=== PATIENT | male | born 1980 | race Caucasian/White ===

== ENCOUNTER 2024-02-17 10:49 | Emergency (ER) | payer SELFPAY ==
[2024-02-17 10:55] VITALS: BP 100/71; PULSE 80; TEMP 37.1; O2SAT 98; BMI 26.0
--- NOTE | 2024-02-17 11:13 | ED_ITS ---
HPI HPI - Back Pain/Injury General Chief Complaint: Back Pain/Injury Stated Complaint: BACK INJURY Time Seen by Provider: 02/17/24 11:13 Source: patient Mode of arrival: walk-in Limitations: no limitations History of Present Illness HPI Narrative: This patient is here complaining of low back pain. Actually his pain starts in the lower thoracic area and goes down to his lumbar area. He states that 3 days ago he was carrying some material at his home overhead and he was both twisting bending and stooping at the same time. He pulling sensation. He has had tightening muscle spasm and discomfort ever since that time. Prior to that time he was told that he has mild arthritis in the spine but has never had an MRI or followed up with orthopedist the doctor for further evaluation. He has no tingling numbness weakness or radiculopathy type symptoms. There is no pain radiating to his groin or genital area and none rating down to his buttock. He has no bowel or bladder dysfunction. He has not been running a fever. He did not have any other trauma or injury. He is only taken a limited dose of anti- inflammatories. He is alternating some ice and heat. He is not on any muscle relaxants. He does not primary have a primary care doctor at this time. Related Data Previous Rx's ?Medication ?Instructions ?Recorded ketorolac 10 mg tablet 10 mg PO TID PRN pain #10 tabs 02/21/24 methocarbamol 750 mg tablet 750 mg PO TID PRN pain #12 tabs 02/21/24 Allergies Allergy/AdvReac Type Severity Reaction Status Date / Time Penicillins Allergy Unknown Unknown Verified 02/21/24 13:49 Opioid HPI Opioid Management Most Recent Opioid Data: No Data to Display [facility] Medical History (Updated 02/21/24 @ 14:14 by DOLLY Hayes) Arthritis of spine ?M47.819 - Spondylosis without myelopathy or radiculopathy, site unspecified (ICD-10) Concussion ?S06.0XAA - Concussion with loss of consciousness status unknown, initial encounter (ICD-10) Asthma ?J45.909 - Unspecified asthma, uncomplicated (ICD-10) Exam Narrative Exam Narrative: Awake alert moves cautiously but is ambulatory. In a sitting position he was examined. There is no gross kyphoscoliosis of the spine. There is no obvious deformity injury or bruising to the area. There is no evidence of shingles or other skin lesions. Deep tendon reflexes at patella are 3/4 and symmetrical. At Achilles are 2/4 and symmetrical and extensor houses longus function is excellent bilaterally. He was straight leg raising test and hip flexion he has discomfort but no radiculopathy type symptoms. There is no muscular atrophy. Constitutional Vital Signs, click to edit/add: Last Vital Signs Temp 98.7 F 02/17/24 10:55 Pulse 80 02/17/24 10:55 Resp 18 02/17/24 10:55 BP 100/71 02/17/24 10:55 Pulse Ox 98 02/17/24 10:55 O2 Del Method Room Air 02/17/24 10:55 Course Vital Signs Vital signs: Vital Signs Temperature 98.7 F 02/17/24 10:55 Pulse Rate 80 02/17/24 10:55 Respiratory Rate 18 02/17/24 10:55 Blood Pressure 100/71 02/17/24 10:55 Pulse Oximetry 98 02/17/24 10:55 Oxygen Delivery Method Room Air 02/17/24 10:55 Temperature 98.7 F 02/17/24 10:55 Pulse Rate 80 02/17/24 10:55 Respiratory Rate 18 02/17/24 10:55 Blood Pressure 100/71 02/17/24 10:55 Pulse Oximetry 98 02/17/24 10:55 Oxygen Delivery Method Room Air 02/17/24 10:55 MDM - Back Pain/Injury MDM Narrative Medical decision making narrative: At this time patient has classic thoracic thoracal lumbar strain. There is no indication or neurological symptomatology or dysfunction. I do not believe imaging will be necessary at this time. We will give him a work note for 3 days he is to alternate ice and heat 30 minutes only. Robaxin and Anaprox were advised. Will give him referral list with primary care doctors Discharge Plan Discharge Stand Alone Forms: Work/School Release, Portal Instructions Chief Complaint: Back Pain/Injury Clinical Impression: Strain of lumbar region, Acute lumbar myofascial strain Patient Disposition: Home, Self-Care Time of Disposition Decision: 11:16 Mode of Transportation: Private Vehicle Prescriptions / Home Meds: No Action ketorolac 10 mg tablet 10 mg PO TID PRN (Reason: pain) Qty: 10 0RF methocarbamol 750 mg tablet 750 mg PO TID PRN (Reason: pain) Qty: 12 0RF Print Language: Cypriot Instructions: Low Back Strain (ED), Lower Back Exercises (ED) Additional Instructions: Robaxin/Anaprox last alternate ice with heat. Off work for 3 days Discharge Date/Time: 02/17/24 11:31
== END 2024-02-17 11:31 | disposition home or self-care (01) ==
LOC: ER 11:19
PROVIDERS: Emergency Provider Emergency Medicine Emergency Medical Services
DX: S39.012A Strain of muscle, fascia and tendon of lower back, initial encounter (principal); X50.1XXA Overexertion from prolonged static or awkward postures, initial encounter
CPT/HCPCS: 99283

== ENCOUNTER 2024-02-21 13:40 | Emergency (ER) | payer SELFPAY ==
[2024-02-21 13:44] VITALS: BP 114/72; PULSE 86; TEMP 37.2; O2SAT 97; BMI 28.1
--- NOTE | 2024-02-21 13:52 | XR_ITS ---
The [address] [address] Patient Name: MADAI PIERSON MRN: [id number] date: 1980 Sex: M Assigned Patient Location: ER Current Patient Location: ED.MAIN Accession/Order Number: [id number] Exam Date: 02/21/2024 14:00 Report Date: 02/21/2024 14:17 At the request of: HUSSAIN HAWKINS Procedure: XR lumbar spine 2-3V EXAM: XR lumbar spine 2-3V HISTORY: Low back pain COMPARISON: None. TECHNIQUE: AP, lateral lumbar spine. FINDINGS: 5 lumbar vertebra. Normal alignment. Normal mineralization without fracture or focal bone lesion. Normal disc spaces. No evidence of pars defect. Visualized sacrum and SI joints unremarkable. XR/XR lumbar spine 2-3V IMPRESSION: Negative lumbar spine without fracture or focal bone lesion. Electronically authenticated by: EDER TORRES Date: 02/21/2024 14:17
--- NOTE | 2024-02-21 13:52 | ED_ITS ---
<Statement entered by Kait Bales MD - 02/21/24 17:04> This documentation has been reviewed and approved. HPI HPI - Back Pain/Injury General Chief Complaint: Back Pain/Injury Stated Complaint: BACK PAIN Time Seen by Provider: 02/21/24 13:49 Source: patient Mode of arrival: walk-in Limitations: physical limitation History of Present Illness HPI Narrative: Patient is a 43-year-old male who presents to the emergency department for an increase in pain to the low back and paraspinal area. He was seen in this emergency department several days ago, he was treated for lumbosacral strain. No imaging was performed and he was discharged home with Anaprox and Robaxin. He states the medications were working well for him until last night when he slipped in his bedroom and twisted his back again. He states he did fall to the ground. No head injury or other injuries. He is ambulatory and drove himself to the ER. He states the primary reason he came to the emergency department is because he is not able to go back to work. No peripheral paresthesias, no urinary symptoms. Related Data Previous Rx's ?Medication ?Instructions ?Recorded ketorolac 10 mg tablet 10 mg PO TID PRN pain #10 tabs 02/21/24 methocarbamol 750 mg tablet 750 mg PO TID PRN pain #12 tabs 02/21/24 Allergies Allergy/AdvReac Type Severity Reaction Status Date / Time Penicillins Allergy Unknown Unknown Verified 02/21/24 13:49 Opioid HPI Opioid Management Most Recent Opioid Data: No Data to Display Review of Systems ROS Constitutional Denies: fever or chills Ears, nose, mouth, and throat Denies: throat pain or nasal congestion Cardiovascular Denies: chest pain Respiratory Denies: shortness of breath or cough Gastrointestinal Denies: nausea or vomiting Musculoskeletal Reports: back pain; Denies: neck pain or extremity pain Integumentary/Breast Denies: rash Neurological Denies: headache, numbness in extremities or weakness in extremities Hematologic/Lymphatic Denies: easy bruising or easy bleeding [facility] Medical History (Updated 02/21/24 @ 14:14 by DOLLY Hayes) Arthritis of spine ?M47.819 - Spondylosis without myelopathy or radiculopathy, site unspecified (ICD-10) Concussion ?S06.0XAA - Concussion with loss of consciousness status unknown, initial encounter (ICD-10) Asthma ?J45.909 - Unspecified asthma, uncomplicated (ICD-10) Exam Narrative Exam Narrative: Gen.: Awake, alert, in no distress Head: Normocephalic, atraumatic ENT: Moist mucous membranes Respiratory: No respiratory distress Extremities: Moves extremities equally, normal dorsiflexion and plantarflexion of the lower extremities with no decrease in sensation to the medial thighs Back: No bony point tenderness of the lumbar spine with no obvious deformity or step-off. No CVA tenderness. Psych: Normal mood and affect Neuro: No focal neuro deficit Skin: Warm, dry, intact Constitutional Vital Signs, click to edit/add: Last Vital Signs Temp 99 F 02/21/24 13:44 Pulse 86 02/21/24 13:44 Resp 18 02/21/24 13:44 BP 114/72 02/21/24 13:44 Pulse Ox 97 02/21/24 13:44 O2 Del Method Room Air 02/21/24 13:44 Course Vital Signs Vital signs: Vital Signs Temperature 99 F 02/21/24 13:44 Pulse Rate 86 02/21/24 13:44 Respiratory Rate 18 02/21/24 13:44 Blood Pressure 114/72 02/21/24 13:44 Pulse Oximetry 97 02/21/24 13:44 Oxygen Delivery Method Room Air 02/21/24 13:44 Temperature 99 F 02/21/24 13:44 Pulse Rate 86 02/21/24 13:44 Respiratory Rate 18 02/21/24 13:44 Blood Pressure 114/72 02/21/24 13:44 Pulse Oximetry 97 02/21/24 13:44 Oxygen Delivery Method Room Air 02/21/24 13:44 MDM - Back Pain/Injury MDM Narrative Medical decision making narrative: Patient with no neurologic deficit, no bony point tenderness on exam, and x-rays with no evidence of acute process. Patient request multiple times for work note to be written for him with limited duty and time off from his last visit. He was given a short course of analgesics and muscle relaxants as needed although he states he has leftover medication from previous. He was given a primary care referral and a work note. Return to the ER if symptoms change or worsen. Rest, ice, gentle stretching. SUPERVISED APC VISIT, PHYSICIAN ATTESTATION: Based on the medical record the care appears appropriate. ? Medical Records Attestation: I reviewed the patient's medical records. Imaging Data XR lumbar: Attestation: I have reviewed the pertinent imaging results. Radiologist's impression: ITS Impressions Lumbar Spine X-Ray 02/21/24 13:52 IMPRESSION: Negative lumbar spine without fracture or focal bone lesion. Electronically authenticated by: EDER TORRES Date: 02/21/2024 14:17 Discharge Plan Discharge Stand Alone Forms: Portal Instructions Chief Complaint: Back Pain/Injury Clinical Impression: Strain of lumbar region Patient Disposition: Home, Self-Care Time of Disposition Decision: 14:14 Condition: Good Prescriptions / Home Meds: New ketorolac 10 mg tablet 10 mg PO TID PRN (Reason: pain) Qty: 10 0RF methocarbamol 750 mg tablet 750 mg PO TID PRN (Reason: pain) Qty: 12 0RF Print Language: Fijian Instructions: Low Back Strain (ED) Referrals: Physician,Non-Staff, MD [Primary Care Provider] - 1 week
--- OUTSIDE RECORDS SUMMARY | 2024-02-21 14:19 | XMS_ITS | CCD ---
Author Organization [facility] Inform ion Partnership [facility] Care Team Providers Care Transverse Abdominal Muscle Surgeon Name Role Phone Sharath Lugo Primary Care Physician Caden MITCHELL Primary Care Physician Sharath Lugo Primary Care Physician [phone] JOSÉ MIGUEL LEES Attending Unavailable Misty LEWIS Attending Unavailable Nii Degroot Attending Unavailable Martín Hawthorne Attending Unavailable Allergies Allergy Classification Reported Allergen(s) Allergy Type Date of Onset Reaction(s) Facility (5 sources) Penicillins; Translations: [penicillins] Drug allergy Unknown (qualifier value) [facility] Medications Current Medications Medication Drug Class(es) Dates Sig (Normalized) Sig (Original) 200 actuat albuterol 0.09 mg/actuat dry powder inhaler (5 sources) beta2-Adrenergic Agonist Start: 01-09-2022 End: 02-10-2022 take 1 dose by inhalation every four hours albuterol 90 mcg/inh inhalation powder 2 puff(s), Inhalation, q4hr for wheezing or SOB, 1 EA, Refill(s) 0, [facility], 175, cm, 01/09/22 18:04:00 EDT, Height/Length Dosing, 90, kg, 01/09/22 18:04:00 EDT, Weight Dosing Start Date: 01/09/22 Stop Date: 02/10/22 Status: Ordered Start: 10-10-2021 End: 10-15-2021 take 2.5 mg by inhalation every six hours as needed for wheezing albuterol 0.083% Inh Kirsten 3 mL UD 2.5 mg = 3 mL, Inhalation, q6hr, PRN for wheezing, X 5 day(s), # 30 EA, Refills(s) 0, Pharmacy: [facility], 175, cm, 10/10/21 13:17:00 EDT, Height/Length Dosing, 93, kg, 10/10/21 13:17:00 EDT, Weight Dosing Start Date: 10/10/21 Stop Date: 10/15/21 Status: Ordered Start: 08-19-2020 take 1 dose by inhal ation four times daily Proventil HFA 90 mcg/inh Aerosol 2 puff(s), Inhalation, QID, 1 EA, Refill(s) 0 Start Date: 08/19/20 Status: Ordered clindamycin 300 mg oral capsule (1 source) Lincosamide Antibacterial Start: 05-01-2023 End: 05-08-2023 take 1 capsule by mouth every eight hours clindamycin 300 mg oral cap 300 mg = 1 cap(s), Oral, q8hr, X 7 day(s), # 21 cap(s), Refills(s) 0, Pharmacy: [facility], 175.3, cm, 05/01/23 5:46:00 EST, Height/Length Dosing, 93.2, kg, 05/01/23 5:46:00 EST, Weight Dosing Start Date: 05/01/23 Stop Date: 05/08/23 Status: Ordered doxycycline hyclate 100 mg oral capsule (1 source) Tetracycline-class Drug Start: 10-10-2021 End: 10-20-2021 take 1 capsule by mouth every twelve hours doxycycline hyclate 100 mg Cap 100 mg = 1 cap(s), Oral, q12hr, X 10 day(s), # 20 cap(s), Refills(s) 0, Pharmacy: [facility], 175, cm, 10/10/21 13:17:00 EDT, Height/Length Dosing, 93, kg, 10/10/21 13:17:00 EDT, Weight Dosing Start Date: 10/10/21 Stop Date: 10/20/21 Status: Ordered predniSONE 20 mg oral tablet (1 source) Start: 10-10-2021 End: 10-15-2021 take 3 tablets by mouth once daily predniSONE 20 mg Tab 60 mg = 3 tab(s), Oral, Daily, X 5 day(s), # 15 tab(s), Refills(s) 0, Pharmacy: [facility], 175, cm, 10/10/21 13:17:00 EDT, Height/Length Dosing, 93, kg, 10/10/21 13:17:00 EDT, Weight Dosing Start Date: 10/10/21 Stop Date: 10/15/21 Status: Ordered Completed/Discontinued Medications Medication Drug Class(es) Dates Sig (Normalized) Sig (Original) naproxen 500 mg oral tablet (1 source) Nonsteroidal Anti-inflammatory Drug Start: 10-23-2023 take 1 tablet by mouth twice daily naproxen 500 mg Tab 500 mg = 1 tab(s), Oral, BID, Take one tab by mouth two times a day, # 14 tab(s), Refills(s) 0, Pharmacy: [id number], 175.3, cm, 10/23/23 15:12:00 EDT, Height/Length Dosing, 84.8, kg, 10/23/23 15:12:00 EDT, Weight Dosing Start Date: 10/23/23 Status: Ordered nebulizer (4 sources) Start: 10-10-2021 nebulizer nebulizer, See Instructions, 1 EA, 0, nebulizer, Supply Start Date: 10/10/21 Status: Ordered Proventil HFA 90 mcg/inh Aerosol (1 source) Start: 08-19-2020 take 1 dose by inhalation four times daily Proventil HFA 90 mcg/inh Aerosol 2 puff(s), Inhalation, QID, 1 EA, Refill(s) 0 Start Date: 08/19/20 Status: Ordered Problems Problem Classification Problem Date Documented Date Episodic/Chronic Asthma (4 sources) Asthma 09-08-2017 Chronic Chronic obstructive pulmonary disease and bronchiectasis (1 source) Pulmonary emphysema; Translations: [Emphysema, unspecified] Onset: 10-10-2021 Chronic Disorders of teeth and jaw (1 source) Periapical abscess; Translations: [Periapical abscess without sinus] Onset: 05-01-2023 Episodic Fever of unknown origin (1 source) Fever; Translations: [Fever, unspecified] Onset: 01-09-2022 Episodic Pneumonia (except that caused by tuberculosis or sexually transmitted disease) (1 source) Pneumonia; Translations: [Pneumonia, unspecified organism] Onset: 10-10-2021 Episodic Sprains and strains (1 source) Sprain of left wrist; Translations: [Unspecified sprain of left wrist, initial encounter] Onset: 10-23-2023 Episodic Substance-related disorders (4 sources) Smoker 12-31-2015 Chronic Comment on above: Added secondary to d ocumentation in Social History. Viral infection (1 source) Viral disease; Translations: [Viral infection, unspecified] Onset: 01-09-2022 Episodic Results Test Name Value Interpretation Reference Range Facility [facility] 10-29-2023 Consent [id number] #1.00TIFF Normal [facility] Workers' Comp Officeon 10-28 Workers' Comp Office [id number]#1.00TIFF Normal [facility] Workers' Comp Office [id number] 312#1.00TIFF Normal [facility] Workers' Comp Office Patient: NII PIERSON Age: 42 years Sex: Male : 1980 Associated Diagnoses: None Author: Misty LEWIS CNP Chief Complaint 10/29/2023 10:56 EDT ER f/u DOI 10/23/23 L hand/wrist. Pt states he heard and felt a pop in his L wrist, after he had numbness in his L thumb and index finger. Pt states he no longer is having numbness. 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 This occurs q5 min As he was lifting a roll of paper he heard a pop in his left wrist. He immediately applied an samir bandage but his wrist continued to hurt and he felt a numbness in his index finger and thumb. Pt then decided to go to the ER - xrays of forearm and wrist are negative. He was diagnosed with sprain of the left wrist. Put into a wrist splint, rx for naproxen 10/29/23 presents today for ER f/u States he has no consistent pain - states he used to be able to crack his wrist and has not been able to do this. He does have pain with certain movements. Denies any swelling. He wears splint off and on, he is taking 600 mg ibuprofen He has not been working as place of employment does not have light duty He is right hand dominate Review of Systems Constitutional: Negative. Musculoskeletal: left wrist sprain. Integumentary: Negative. Neurologic: Negative. Psychiatric: Negative. Health Status Allergies: Allergic Reactions (Selected) Severity Not Documented Penicillins- Unknown., Allergies (1) Active Severity Reaction penicillins Unknown Current medications: (Selected) Prescriptions Prescribed Proventil HFA 90 mcg/inh Aerosol: 2 puff(s), Inhalation, QID, 1 EA, Refill(s) 0 naproxen 500 mg Tab: 500 mg = 1 tab(s), Oral, BID, Take one tab by mouth two times a day, # 14 tab(s), Refills(s) 0, Pharmacy: [facility], 175.3, cm, 10/23/23 15:12:00 EDT, Height/Length Dosing, 84.8, kg, 10/23/23 15:12:00 EDT, Weight Dosing nebulizer: nebulizer, See Instructions, 1 EA, 0, nebulizer, Supply, Home Medications (3) Active naproxen 500 mg Tab 500 mg = 1 tab(s), Oral, BID nebulizer See Instructions Proventil HFA 90 mcg/inh Aerosol 2 puff(s), Inhalation, QID Problem list: Active Problems (1) Smoker Histories Past Medical History: Resolved Asthma ([id number]): Resolved. Procedure history: tubes in bilateral ears as a child. Physical Examination Vital Signs (last 24 hrs) Last Charted SBP 126 mmHg (OCTOBER 28 10:56) DBP 70 mmHg (OCTOBER 28 10:56) General: Alert and oriented, No acute distress. Musculoskeletal No deformity of left wrist. No edema is present. No tenderness to palpation. FROM of wrist and fingers. Good strength.. Integumentary: Warm, Dry, [place]. Neurologic: Alert, Oriented, Normal sensory, Normal motor function. Psychiatric: Cooperative, Appropriate mood & affect. Impression and Plan Diagnosis Unspecified sprain of left wrist, initial encounter ([id number] S63.502A, Working, Medical). Course: Improving. Orders Total time: 25 minutes This includes time spent with the patient during the visit as well as time spent before and after the visit reviewing the chart, documenting the encounter, making phone calls, reviewing studies. . Professional Services 1. Reviewed record 2. Status: improvement 3. Reviewed medication profile 4. Ibuprofen 600 mg q8hr 5. tylenol 1000 mg q8hr prn 6. Counseled patient on medication administration and possible side effects 7. Use ice / heat prn - may wear immobilizer prn 8 Work Restrictions: RTW full duty 9 F/U [facility] Consent for Treatmenton 09-25 Consent for Treatment [id number] BD#1.00TIFF [facility] Discharge Instructionson Discharge Instructions [id number]#1.00TIFF [facility] ED Clinical Summaryon 2023 ED Clinical Summary [place] [id number] ED Clinical Summary Person Information Name: NII PIERSON Geni/[facility] Age: 42 Years : 1980 Sex: Male Language: [place] PCP: Sharath Lugo DO Marital Status: Single Phone: [phone] Visit Id: Visit Reason: Wrist pain-swelling; LEFT WRIST HURT Speciality: Acuity: 4 Enc Type: Emergency Med Service: Emergency Arrival: 10/23/2023 15:04:55 Discharge: 10/23/2023 16:21:33 LOS: 000 01:17 Checkin: 10/23/2023 15:04:55 Checkout: 10/23/2023 16:21:33 Dispo Type: Home (Routine DC) EVENTS: Event Name Event Status Request Date/Time Start Date/Time Complete Date/Time Arrive Complete 10/23/2023 15:04:55 10/23/2023 15:04:55 10/23/2023 15:04:55 Document Home Meds Request 10/23/2023 15:04:55 Triage Complete 10/23/2023 15:04:55 10/23/2023 15:12:26 10/23/2023 15:12:26 No Visitors Request 10/23/2023 15:06:37 RN Exam Complete 10/23/2023 15:14:16 10/23/2023 15:14:16 10/23/2023 15:14:16 Bed Assign Complete 10/23/2023 15:17:52 10/23/2023 15:17:52 10/23/2023 15:17:52 Dr Exam Complete 10/23/2023 15:17:52 10/23/2023 15:20:07 10/23/2023 15:20:07 Registration Complete 10/23/2023 15:20:07 10/23/2023 15:46:14 10/23/2023 15:46:14 X-Ray Complete 10/23/2023 15:31:24 10/23/2023 15:40:27 10/23/2023 15:50:25 Reg Complete Request 10/23/2023 15:46:14 Reg Bed Request Complete 10/23/2023 15:46:14 10/23/2023 15:46:14 10/23/2023 15:46:14 Wet Read Complete 10/23/2023 15:50:25 10/23/2023 15:51:23 10/23/2023 15:51:23 Discharge Complete 10/23/2023 15:55:22 10/23/2023 16:21:43 10/23/2023 16:21:43 Transfer Complete 10/23/2023 16:21:43 10/23/2023 16:21:43 10/23/2023 16:21:43 ADDRESS: [address] [place] [address] [phone] PHYS DOC NOTES: MEDICAL INFORMATION: Prescriptions Given: New Medications [facility], [address] [place], [place] [id number], [phone] naproxen (naproxen 500 mg Tab) 1 Tablets By Mouth 2 times a day. Take one tab by mouth two times a day. Refills: 0. Medications to Continue with No Changes Other Medications albuterol (Proventil HFA 90 mcg/inh Aerosol) 2 Puffs Inhalation 4 times a day. Refills: 0. Misc Prescription (nebulizer) nebulizer. Refills: 0. PATIENT EDUCATION INFORMATION: Instructions: Follow up: With: Address: When: Occupational Health: [facility] [place] [phone] In 3 days 10/26/2023 DIAGNOSIS: Sprain of left wrist Normal [facility] ED Note-Physicianon 10-23-19 ED Note-Physician Basic Information Time Seen: Martín Hawthorne DO 10/23/2023 15:20 Chief Complaint patiet c/o left wrist pain after lifting a box at work this am [employer]- [employer] History of Present Illness 42 male presents emergency department with left wrist injury. Patient states earlier this morning around 830 he was at work he was lifting a heavy roll when he felt something snap in the ulnar aspect of his left wrist causing injury. Patient states he continue to try to work through this but continued to have increasing pain throughout the distal forearm and wrist with some numbness into his thumb and index finger as well. He has had prior injuries here before but denies any surgical intervention. No other aggravating or relieving factors no other associated symptoms no other prior treatments or complaints. Family: Reviewed and noncontributory Social: lives at home Review of systems negative unless otherwise specified in the HPI. Physical Exam Vitals & Measurements T: 36.7 ?C(Oral) HR: 88(Peripheral) RR: 18 BP: 111/77 SpO2: 98% HT: 175.26 cm WT: 84.8 kg BMI: 27.61 Vital Signs reviewed and noted. General: Alert, no acute distress, patient resting comfortably Skin: warm, intact, no pallor noted Head: Normocephalic, atraumatic Eye: Normal conjunctiva Cardiac: Normal peripheral perfusion Respiratory: No acute distress Musculoskeletal: Left upper extremity exam: No focal tenderness palpation to the left elbow or forearm. Patient does have some generalized tenderness to the distal third of the forearm and generally about the wrist as well. No tenderness in the anatomical snuffbox or the remainder of the hand. There is some pain with range of motion here as well. Neurological: alert and oriented, normal sensory and motor observed. Psychiatric: Cooperative Medical Decision Making X-rays are negative for acute fracture patient is educated on rice therapy discharged home on naproxen follow-up follow-up with occupational health and given a wrist plant as well. Assessment/Plan Sprain of left wrist (S63.502A: Unspecified sprain of left wrist, initial encounter) Orders: naproxen, 500 mg = 1 tab(s), Oral, BID, Take one tab by mouth two times a day, # 14 tab(s), Refills(s) 0, Pharmacy: [facility], 175.3, cm, 10/23/23 15:12:00 EDT, Height/Length Dosing, 84.8, kg, 10/23/23 15:12:00 EDT, Weight Dosing Splint Application Wrist XR Forearm 2 Views Left XR Wrist 3+ Views Left Disposition Plan Discharge Prescription List Prescriptions naproxen 500 mg Tab, 500 mg= 1 tab(s), Oral, BID Follow-up With When Contact Information Occupational Health: [facility] [place] [phone] In 3 days 10/26/2023 EDT Additional Instructions: Problem List/Past Medical History Ongoing Smoker Historical Asthma Procedure/Surgical History tubes in bilateral ears as a child. Medications Inpatient No active inpatient medications Home nebulizer, See Instructions Proventil HFA 90 mcg/inh Aerosol, 2 puff(s), Inhalation, QID Allergies penicillins (Unknown) Social History Alcohol - Low Risk, 03/18/2020 1-2 times per year, 02/09/2021 1-2 times per year, 10/19/2020 Current, 1-2 times per month, 03/18/2020 Current, Beer, 1-2 times per year, Previous treatment: None. Alcohol use interferes with work or home: No. Drinks more than intended: No. Others hurt by drinking: No. Ready to change: No., 09/08/2017 Current, Beer, 1-2 times per month, Alcohol use interferes with work or home: No. Drinks more than intended: No. Others hurt by drinking: No. Ready to change: No. Household alcohol concerns: No., 07/05/2017 Substance Abuse - Denies Substance Abuse, 12/25/2010 Current, 09/08/2017 Tobacco - High Risk, 05/26/2018 10 or more cigarettes (1/2 pack or more)/day in last 30 days Tobacco Use:., 02/09/2021 5-9 cigarettes (between 1/4 to 1/2 pack)/day in last 30 days Tobacco Use:., 10/19/2020 10 or more cigarettes (1/2 pack or more)/day in last 30 days Tobacco Use:., 03/18/2020 5-9 cigarettes (between 1/4 to 1/2 pack)/day in last 30 days Tobacco Use:. Cigarettes, 12 year(s). Previous treatment: None. Ready to change: Yes. Household tobacco concerns: Yes., 09/08/2017 Current, Cigarettes, Started age 11.0 Years. Previous treatment: Counseling. Ready to change: No., 12/25/2010 Lab Results No qualifying data available. Diagnostic Results XR Forearm 2 Views Left * Preliminary * 10/23/23 15:54:22 NEGATIVE: No fracture, subluxation or other acute abnormality Read By: Martín Hawthorne DO XR Wrist 3+ Views Left * Preliminary * 10/23/23 15:54:25 NEGATIVE: No fracture, subluxation or other acute abnormality Read By: Martín Hawthorne DO Normal [facility] Comment on above: Result Comment: Elec tronically Signed By: Martín Hawthorne DO\.br\Date and Time Signed: 10/23/23 15:56 EDT ED Patient Education Noteon 10-23-2023 ED Patient Education Note Normal [facility] ED Patient Summaryon 024 ED Patient Summary [place] [id number] Patient Discharge Instructions Person Information Name: NII PIERSON Age: 42 Years Arrival Date: 10/23/2023 15:04:55 Discharge Diagnosis: Sprain of left wrist Primary Care Physician: Sharath Lugo DO Provider Information Primary Provider: Martín Hawthorne DO Advanced Medical Information Specialist:None The exam and treatment you received in the Emergency Department were for an urgent problem and are not intended as complete care. It is important that you follow up with a doctor, nurse practitioner, or physician?s quality assistant for ongoing care. If your symptoms become worse or you do not improve as expected and you are unable to reach your usual health care provider, you should return to the Emergency Department. We are available 24 hours a day. NII PIERSON has been given the following list of patient education materials, prescriptions and follow-up instructions: Follow-up Instructions: With: Address: When: Occupational Health: [facility] [place] [phone] In 3 days 10/26/2023 In the event that this physician does not participate in your insurance network, please consult with your insurance company to find a nearby participating provider. Patient Education Materials: A MESSAGE TO ALL PATIENTS REGARDING OPIOIDS PRESCRIPTION OPIOIDS: WHAT YOU NEED TO KNOW Prescription opioids can be used to help relieve cogdyvoo-rb-tjpncq pain and are often prescribed following a surgery or injury, or for certain health conditions. These medications can be an important part of the treatment but also come with serious risks. It is important to work with your healthcare provider to make sure you are getting the safest, most effective care. WHAT ARE THE RISKS AND SIDE EFFECTS OF OPIOID USE? Prescription opioids carry serious risks of addiction and overdose, especially with prolonged use. An opioid overdose, often marked by slowed breathing, can cause sudden . The use of prescription opioids can have a number of side effects as well, even when taken as directed: ? Tolerance?meaning you might need to take more of the medication for the same pain relief ? Physical dependence?meaning you have symptoms of withdrawal when a medication is stopped ? Increased sensitivity to pain ? Constipation ? Nausea, vomiting, and dry mouth ? Sleepiness and dizziness ? Confusion ? Depression ? Low levels of testosterone that can result in lower sex drive, energy, and strength ? Itching and sweating RISKS ARE GREATER WITH: ? History of drug misuse, substance use disorder, or overdose ? Mental health conditions (such as depression or anxiety) ? Sleep apnea ? Older age (65 years and older) ? Avoid alcohol while taking prescription opioids. Also, unless specifically advised by your health care provider, medications to avoid include: ? Benzodiazepines (such as Xanax or Valium) ? Muscle relaxants (such as Soma or Flexeril) ? Hypnotics (such as Ambien or Lunesta) ? Other prescription opioids KNOW YOUR OPTIONS Talk to your health care provider about ways to manage your pain that don?t involve prescription opioids. Some of these options may actually work better and have fewer risks and side effects. Options may include: ? Pain relievers such as acetaminophen, ibuprofen, and naproxen ? Some medication that are also used for depression or seizures ? Physical therapy and exercise ? Cognitive behavioral therapy, a psychological, goal-directed approach, in which patients learn how to modify physical, behavioral, and emotional triggers of pain and stress. IF YOU ARE PRESCRIBED OPIOIDS FOR PAIN: ? Never take opioids in greater amounts or more often than prescribed. ? Follow up with your primary health care provider. o Work together to create a plan on how to manage your pain. o Talk about ways to help manage your pain that don?t involve prescription opioids. o Talk about any and all concerns and side effects. ? Help prevent misuse and abuse o Never sell or share prescription opioids. o Never use another person?s prescription opioids. ? Store prescription opioids in a secure place and out of reach of others (this may include visitors, children, friends, and family). ? Safely dispose of unused prescription opioids: Find your community drug take-back program or your pharmacy mail-back program, or flush them down the toilet, following guidance from the Food and Drug Administration (www.fda.gov/Drugs/ ResourcesForYou). ? Visit www.cdc.gov/drugove rdose to learn about the risks of opioids abuse and overdose. ? If you believe you may be struggling with addiction, tell your health child care centre manager and ask for guidance or call [facility]?S National Helpline at 8-794-151-IWEX. g Source: US Department of Health and Human Services/Center for Disease Control & Prevention Patrick Cruz (more content not included)... Normal [facility] Workers Comp Formson 024 Workers Comp Forms [id number] [facility] XR Forearm 2 Views Lefton XR Forearm 2 Views Left Exam Date/Time: 10/23/2023 15:50 EDT Reason for Exam: Pain, Traumatic Report PLEASE SEE XR Wrist 3+ Views Left REPORT DATED: 10/23/2023. Ordering Provider: Martín Hawthorne FINAL REPORT Dictated: 10/23/2023 4:46 pm Richard Lee MD Signed (Electronic Signature): 10/23/2023 4:46 pm Signed by: Richard eLe MD Transcribed by: JUAN MANUEL Technologist: SULY Technical Comments Radiation Dose: Ka,r in mGy = na DAP = na Normal [facility] XR Wrist 3+ Views Lefton XR Wrist 3+ Views Left Exam Date/Time: 10/23/2023 15:50 EDT Reason for Exam: Pain, Traumatic Report IMPRESSION: NO DISPLACED FRACTURE OR SIGNIFICANT POSTTRAUMATIC COMPLICATION IDENTIFIED. EXAM: XR Wrist 3+ Views Left, XR Forearm 2 Views DATE: 10/23/2023 3:40 PM CLINICAL HISTORY: Pain, Traumatic. COMPARISON: None available. TECHNIQUE: PA, lateral, oblique, and navicular radiographs of the left wrist and AP and lateral radiographs of the left forearm were obtained. FINDINGS: There is no fracture, dislocation, worrisome bone destruction, radiodense foreign bodies, or other posttraumatic complication identified. Ordering Provider: Martín Hawthorne FINAL REPORT Dictated: 10/23/2023 4:45 pm Richard Lee MD Signed (Electronic Signature): 10/23/2023 4:45 pm Signed by: Richard Lee MD Transcribed by: JUAN MANUEL Technologist: SULY Technical Comments Radiation Dose: Ka,r in mGy = na DAP = na Normal [facility] Consent for Treatmenton Consent for Treatment [id number] Normal [facility] Discharge Instructionson Discharge Instructions [id number] Normal [facility] ED Clinical Summaryon 2022 ED Clinical Summary [address] [address] ED Clinical Summary Person Information Name: NII PIERSON [place] Age: 42 Years : 1980 Sex: Male Language: [place] PCP: Sharath Lugo DO Marital Status: Single Visit Id: Visit Reason: Facial swelling; Dental pain; face pain swelling Speciality: Acuity: 4 Enc Type: Emergency Med Service: Emergency Arrival: 05/01/2023 05:37:34 Discharge: 05/01/2023 05:56:58 LOS: 000 00:19 Checkin: 05/01/2023 05:37:34 Checkout: 05/01/2023 05:56:58 Dispo Type: Home (Routine DC) EVENTS: Event Name Event Status Request Date/Time Start Date/Time Complete Date/Time Arrive Complete 05/01/2023 05:37:34 05/01/2023 05:37:34 05/01/2023 05:37:34 Document Home Meds Request 05/01/2023 05:37:34 Triage Complete 05/01/2023 05:37:34 05/01/2023 05:46:56 05/01/2023 05:46:56 Dr Exam Complete 05/01/2023 05:42:52 05/01/2023 05:42:52 05/01/2023 05:42:52 Registration Complete 05/01/2023 05:42:52 05/01/2023 05:45:41 05/01/2023 05:52:14 Bed Assign Complete 05/01/2023 05:45:41 05/01/2023 05:45:41 05/01/2023 05:45:41 RN Exam Complete 05/01/2023 05:45:41 05/01/2023 05:49:01 05/01/2023 05:49:01 Discharge Complete 05/01/2023 05:47:21 05/01/2023 05:57:02 05/01/2023 05:57:02 Meds Admin Complete 05/01/2023 05:47:52 05/01/2023 05:54:43 Reg Complete Request 05/01/2023 05:52:14 Reg Bed Request Complete 05/01/2023 05:52:14 05/01/2023 05:52:14 05/01/2023 05:52:14 Transfer Complete 05/01/2023 05:57:02 05/01/2023 05:57:02 05/01/2023 05:57:02 ADDRESS: [address] [facility] [id number] PHYS DOC NOTES: MEDICAL INFORMATION: Prescriptions Given: New Medications [id number], [address] [place] [id number], [phone] clindamycin (clindamycin 300 mg oral cap) 1 Capsules By Mouth every 8 hours for 7 Days. Refills: 0. Medications to Continue with No Changes Other Medications albuterol (Proventil HFA 90 mcg/inh Aerosol) 2 Puffs Inhalation 4 times a day. Refills: 0. Misc Prescription (nebulizer) nebulizer. Refills: 0. PATIENT EDUCATION INFORMATION: Instructions: Dental Pain; Dental Abscess Follow up: With: Address: When: [facility] [address] [place] [address] Business (1) In 3 days 05/04/2023 Comments: Call the office of your primary care doctor to arrange for follow-up within the above-stated timeframe. Follow-up with your primary care doctor about this ED visit. You should review your labs, imaging, and diagnoses from this ED visit with your primary care physician. There are occasionally non-emergent findings that require additional follow-up after your ED visit. If you were prescribed medications you should discuss possible side-effects and drug interactions with your pharmacist. Call 911 or go to the nearest Emergency Department if you develop any new or worsening symptoms. DIAGNOSIS: Dental abscess Normal [facility] ED Note-Physicianon 05-01-20 ED Note-Physician Basic Information Time Seen: Nii Degroot DO 05/01/2023 05:42 Chief Complaint pt started with dental pain yesterday and woke up with left side of face swollen and painful today History of Present Illness 42-year-old male to the emergency department with chief complaint of dental pain. Patient reports it began yesterday. Is in the left upper molar region. Patient reports he has very poor dentition and has multiple fractured teeth. He reports he is currently trying to get dental insurance and was hoping he can avoid any dental issues until he was able to. He denies any fever, sweats, chills. Noticed some increased swelling in his cheek today. Denies any change in voice, trouble opening his mouth. Review of Systems A 10 point review of systems is negative except as noted above. Medical and Surgical History: Reviewed and noted Social history: Lives at home Tobacco: Admits Physical Exam Vitals & Measurements T: 36.7 ?C(Oral) HR: 82(Peripheral) RR: 18 BP: 136/79 SpO2: 98% HT: 175.26 cm WT: 93.2 kg BMI: 30.34 VITALS: I have reviewed the triage vital signs. GENERAL: Well developed, well appearing adult in no acute distress. NEURO: Alert and oriented. Moves all extremities. Face is symmetric and expressive. EYES: PERRL. No scleral icterus or conjunctival injection. No discharge. HENT: Normocephalic, atraumatic. Hearing is grossly intact. Nares grossly patent and without discharge. Mucous membranes moist. No sublingual edema. No trismus. No drooling. No dysphonia. Grossly poor dentition, several near completely eroded teeth in the area of discomfort. No discrete abscess visualized. NECK: No JVD. Patient moves neck without restriction. EXTREMITIES: Symmetric muscle bulk. No joint swelling. No clubbing, cyanosis, or deformity. SKIN: Warm and dry. Normal turgor. No rash or lesions appreciated. PSYCH: Mood, affect, and interaction is appropriate to the setting. Medical Decision Making 42-year-old male with poor dentition with facial swelling and pain. No evidence of deep space infection. We will treat with clindamycin given his allergy to penicillin. He is given dental referral. Return precaution discussed. All questions were answered. He will treat with Tylenol or ibuprofen for discomfort at home. Patient was discharged home. Assessment/Plan Dental abscess (K04.7: Periapical abscess without sinus) Orders: clindamycin, 300 mg = 2 cap(s), Cap, Oral, Once, Stop date 05/01/23 5:47:00 EST, STAT, Start date 05/01/23 5:47:00 EST, 05/01/23 5:47:00 EST clindamycin, 300 mg = 1 cap(s), Oral, q8hr, X 7 day(s), # 21 cap(s), Refills(s) 0, Pharmacy: [id number], 175.3, cm, 05/01/23 5:46:00 EST, Height/Length Dosing, 93.2, kg, 05/01/23 5:46:00 EST, Weight Dosing Medications Administered Given clindamycin 150 mg Cap, 300 mg, Oral Disposition Plan Patient Discharge Condition Stable Discharge Disposition Home Discharge Prescription List Prescriptions clindamycin 300 mg oral cap, 300 mg= 1 cap(s), Oral, q8hr Follow-up With When Contact [facility] In 3 days 05/04/[address] [place] [address] [facility] (1) Additional Instructions: Call the office of your primary care doctor to arrange for follow-up within the above-stated timeframe. Follow-up with your primary care doctor about this ED visit. You should review your labs, imaging, and diagnoses from this ED visit with your primary care physician. There are occasionally non-emergent findings that require additional follow-up after your ED visit. If you were prescribed medications you should discuss possible side-effects and drug interactions with your pharmacist. Call 911 or go to the nearest Emergency Department if you develop any new or worsening symptoms. Patient Education Dental Pain Dental Abscess Problem List/Past Medical History Ongoing Smoker Historical Asthma Procedure/Surgical History tubes in bilateral ears as a child. Medications Inpatient No active inpatient medications Home clindamycin 300 mg oral cap, 300 mg= 1 cap(s), Oral, q8hr nebulizer, See Instructions Proventil HFA 90 mcg/inh Aerosol, 2 puff(s), Inhalation, QID Allergies penicillins (Unknown) Social History Alcohol - Low Risk, 03/18/2020 1-2 times per year, 02/09/2021 1-2 times per year, 10/19/2020 Current, 1-2 times per month, 03/18/2020 Current, Beer, 1-2 times per year, Previous treatment: None. Alcohol use interferes with work or home: No. Drinks more than intended: No. Others hurt by drinking: No. Ready to change: No., 09/08/2017 Current, Beer, 1-2 times per month, Alcohol use interferes with work or home: No. Drinks more than intended: No. Others hurt by drinking: No. Ready to change: No. Household alcohol concerns: No., 07/05/2017 Substance Abuse - Denies Substance Abuse, 12/25/2010 Current, 09/08/2017 Tobacco - High Risk, 05/26/2018 10 or more cigarettes (1/2 pack or more)/day in last 30 d (more content not included)... Normal [facility] Comment on above: Result Comment: Elec troryderally Signed By: Nii Degroot DO\.br\Date and Time Signed: 05/01/23 06:32 EST ED Patient Education Noteon 05-01-2023 ED Patient Education Note Dentistry Dental Pain Dental pain is often a sign that something is wrong with your teeth or gums. It is also something that can occur following dental treatment. If you have dental pain, it is important to contact your dental care provider, especially if the cause of the pain has not been determined. Dental pain may be of varying intensity and can be caused by many things, including: ? Tooth decay (cavities or caries). Cavities are caused by bacteria that produce acids that irritate the nerve of your tooth, making it sensitive to air and hot or cold temperatures. This eventually causes discomfort or pain. ? Abscess or infection. Once the bacteria reach the inner part of the tooth (pulp), a bacterial infection (dental abscess) can occur. Pus typically collects at the end of the root of a tooth. ? Injury. ? A crack in the tooth. ? Gum recession exposing the root, and possibly the nerves, of a tooth. ? Gum (periodontal)diseas e. ? Abnormal grinding or clenching. ? Poor or improper home care. ? An unknown reason (idiopathic). Your pain may be mild or severe. It may occur when you are: ? Chewing. ? Exposed to hot or cold temperatures. ? Eating or drinking sugary foods or beverages, such as soda or candy. Your pain may be constant, or it may come and go without cause. Follow these instructions at home: The following actions may help to lessen any discomfort that you are feeling before or after getting dental care. Medicines ? Take qerk-rht-foogkrr and prescription medicines only as told by your dental care provider. ? If you were prescribed an antibiotic medicine, take it as told by your dental care provider. Do not stop taking the antibiotic even if you start to feel better. Eating and drinking Avoid foods or drinks that cause you pain, such as: ? Very hot or very cold foods or drinks. ? Sweet or sugary foods or drinks. Managing pain and swelling ? Ice can sometimes be used to reduce pain and swelling, especially if the pain is following dental treatment. ? If directed, put ice on the painful area of your face. To do this: ? Put ice in a plastic bag. ? Place a towel between your skin and the bag. ? Leave the ice on for 20 minutes, 2?3 times a day. ? Remove the ice if your skin turns bright red. This is very important. If you cannot feel pain, heat, or cold, you have a greater risk of damage to the area. Brushing your teeth ? To keep your mouth and gums healthy, brush your teeth twice a day using a fluoride toothpaste. ? Use a toothpaste made for sensitive teeth as directed by your dental care provider, especially if the root is exposed. ? Always brush your teeth with a soft-bristled toothbrush. This will help prevent irritation to your gums. General instructions ? Floss at least once a day. ? Do not apply heat to the outside of the face. ? Gargle with a mixture of salt and water 3?4 times a day or as needed. To make salt water, completely dissolve ??1 tsp (3?6 g) of salt in 1 cup (237 mL) of warm water. ? Keep all follow-up visits. This is important. Contact a dental care provider if: ? You have any unexplained dental pain. ? Your pain is not controlled with medicines. ? Your symptoms get worse. ? You have new symptoms. Get help right away if: ? You are unable to open your mouth. ? You are having trouble breathing or swallowing. ? You have a fever. ? You notice that your face, neck, or jaw is swollen. These symptoms may represent a serious problem that is an emergency. Do not wait to see if the symptoms will go away. Get medical help right away. Call your local emergency services (911 in the [place] Do not drive yourself to the hospital. Summary ? Dental pain may be caused by many things, including tooth decay and infection. ? Your pain may be mild or severe. ? Take odyt-bgp-aritbor and prescription medicines only as told by your dental care provider. ? Watch your dental pain for any changes. Let your dental care provider know if your symptoms get worse. This information is not intended to replace advice given to you by your health care provider. Make sure you discuss any questions you have with your health care provider. Document Revised: 03/16/2021 Document Reviewed: 03/16/2021 [employer] Patient Education ? 2022 [employer]. Dental Abscess A dental abscess is an infection around a tooth that may involve pain, swelling, and a collection of pus, as well as other symptoms. Treatment is important to help with symptoms and to prevent the infection from spreading. The general types of dental abscesses are: ? Pulpal abscess. This abscess may form from the inner part of the tooth (pulp). ? Periodontal abscess. This abscess may form from the gum. What are the causes? This condition is caused by a bacterial infection in or around the tooth. It may result from: ? Severe tooth de (more content not included)... Normal [facility] ED Patient Summaryon 023 ED Patient Summary [address] [address] Patient Discharge Instructions Person Information Name: NII PIERSON Age: 42 Years Arrival Date: 05/01/2023 05:37:34 Discharge Diagnosis: Dental abscess Primary Care Physician: Sharath Lugo DO Provider Information Primary Provider: Nii Degroot DO. Advanced Medical Information Specialist:None The exam and treatment you received in the Emergency Department were for an urgent problem and are not intended as complete care. It is important that you follow up with a doctor, nurse practitioner, or physician?s quality assistant for ongoing care. If your symptoms become worse or you do not improve as expected and you are unable to reach your usual health care provider, you should return to the Emergency Department. We are available 24 hours a day. NII PIERSON has been given the following list of patient education materials, prescriptions and follow-up instructions: Follow-up Instructions: With: Address: When: [facility] [address] [address] Business (1) In 3 days 05/04/2023 Comments: Call the office of your primary care doctor to arrange for follow-up within the above-stated timeframe. Follow-up with your primary care doctor about this ED visit. You should review your labs, imaging, and diagnoses from this ED visit with your primary care physician. There are occasionally non-emergent findings that require additional follow-up after your ED visit. If you were prescribed medications you should discuss possible side-effects and drug interactions with your pharmacist. Call 911 or go to the nearest Emergency Department if you develop any new or worsening symptoms. In the event that this physician does not participate in your insurance network, please consult with your insurance company to find a nearby participating provider. Patient Education Materials: Dental Pain; Dental Abscess A MESSAGE TO ALL PATIENTS REGARDING OPIOIDS PRESCRIPTION OPIOIDS: WHAT YOU NEED TO KNOW Prescription opioids can be used to help relieve pbhhsrqc-hl-aoqded pain and are often prescribed following a surgery or injury, or for certain health conditions. These medications can be an important part of the treatment but also come with serious risks. It is important to work with your healthcare provider to make sure you are getting the safest, most effective care. WHAT ARE THE RISKS AND SIDE EFFECTS OF OPIOID USE? Prescription opioids carry serious risks of addiction and overdose, especially with prolonged use. An opioid overdose, often marked by slowed breathing, can cause sudden . The use of prescription opioids can have a number of side effects as well, even when taken as directed: ? Tolerance?meaning you might need to take more of the medication for the same pain relief ? Physical dependence?meaning you have symptoms of withdrawal when a medication is stopped ? Increased sensitivity to pain ? Constipation ? Nausea, vomiting, and dry mouth ? Sleepiness and dizziness ? Confusion ? Depression ? Low levels of testosterone that can result in lower sex drive, energy, and strength ? Itching and sweating RISKS ARE GREATER WITH: ? History of drug misuse, substance use disorder, or overdose ? Mental health conditions (such as depression or anxiety) ? Sleep apnea ? Older age (65 years and older) ? Avoid alcohol while taking prescription opioids. Also, unless specifically advised by your health care provider, medications to avoid include: ? Benzodiazepines (such as Xanax or Valium) ? Muscle relaxants (such as Soma or Flexeril) ? Hypnotics (such as Ambien or Lunesta) ? Other prescription opioids KNOW YOUR OPTIONS Talk to your health care provider about ways to manage your pain that don?t involve prescription opioids. Some of these options may actually work better and have fewer risks and side effects. Options may include: ? Pain relievers such as acetaminophen, ibuprofen, and naproxen ? Some medication that are also used for depression or seizures ? Physical therapy and exercise ? Cognitive behavioral therapy, a psychological, goal-directed approach, in which patients learn how to modify physical, behavioral, and emotional triggers of pain and stress. IF YOU ARE PRESCRIBED OPIOIDS FOR PAIN: ? Never take opioids in greater amounts or more often than prescribed. ? Follow up with your primary health care provider. o Work together to create a plan on how to manage your pain. o Talk about ways to help manage your pain that don?t involve prescription opioids. o Talk about any and all concerns and side effects. ? Help prevent misuse and abuse o Never sell or share prescription opioids. o Never use another person?s prescription opioids. ? Store prescription opioids in a secure place and out of reach of others (more content not included)... Normal [facility] MICRO OTHER TESTSOrdered By: Ambar Crum on 01-09-2022 Rapid COV Int NEG Ctl Pass (01/09/22 6:20 PM) Normal [facility] Rapid COV Int POS Ctl Pass (01/09/22 6:20 PM) Normal [facility] SARS-CoV+SARS-CoV-2 (COVID-19) Ag IA.rapid Ql (Resp) Not Detected (01/09/22 6:20 PM) Normal Not Detected [facility] CHEMISTRYOrdered By: SYSTEM SYSTEM on 10-10-2021 Anion gap [Moles/Vol] 18 mmol/L High 6 - 16 mEq/L [facility] Calcium [Mass/Vol] 9.5 mg/dL Normal 8.9 - 11. 1 mg/dL [facility] Remisol Chloride [Moles/Vol] 97 mmol/L Low 101 - 1 11 mmol/L [facility] [place] Remisol CO2 [Moles/Vol] 22 mmol/L Normal 21 - 31 mmol/L [facility] [place] Remisol Creatinine [Mass/Vol] 1.1 mg/dL Normal 0.5 - 1.3 mg/dL [facility] [place] Remisol GFR/1.73 sq M.predicted among blacks MDRD (S/P/Bld) [Vol rate/Area] mL/min/1.73 m2 Normal >=59mL/min/1. 73 m2 [facility] Chem S GFR/1.73 sq M.predicted among non-blacks MDRD (S/P/Bld) [Vol rate/Area] mL/min/1.73 m2 Normal >=59mL/min/1. 73 m2 [facility] [place] Chem S Glucose [Mass/Vol] 97 mg/dL Normal 55 - 199 mg/dL [facility] Magnesium [Mass/Vol] 2.1 mg/dL Normal 1.3 - 2 .4 mg/dL [facility] Potassium [Moles/Vol] 3.9 mmol/L Normal 3.5 - 5.3 mmol/L [facility] Sodium [Moles/Vol] 133 mmol/L Low 135 - 145 mmol/L [facility] Troponin I.cardiac [Mass/Vol] 4.20 pg/mL Low 15.90 - 38.40 pg/mL [facility] Urea nitrogen [Mass/Vol] 17 mg/dL Normal 5 - 21 mg/dL [facility] Urea nitrogen/Creatinine [Mass ratio] 16 mg/mg Normal 10 - 20 [facility] COAGULATIONOrdered By: Rob Terrell on 10-10-2021 aPTT Coag (PPP) [Time] 34.4 s Normal 25.1 - 36.5 second(s) [facility] Auto Coag Fibrin D-dimer FEU (PPP) [Mass/Vol] 993 ng/mL FEU Invalid Interpretation Code 215 - 500 ng/mL FEU [facility] Comment on above: Result Comment: Resu lts Called To NII DEGROOT_ By ROB TERRELL And Read Back For Confirmation On _10/10/2021 13:58:27 EDT Results Verified By Repeat Analysis INR Coag (PPP) [Relative time] 1.2 {INR} Invalid Interpretation Code [facility] Coag PT Coag (PPP) [Time] 14.1 s High 10.2 - 12.9 second(s) [facility]ag HEMATOLOGYOrdered By: SYSTEM SYSTEM on 10-10-2021 Basophils/100 WBC (Bld) 0.2 % Normal 0.0 - 2.0 % [facility] HemeAutoSS Basophils/Leukocytes Auto (Bld) [Pure # fraction] 0.0 E9/L Normal 0.0 - 0.2 E9/L [facility] Eosinophils/100 WBC (Bld) 0.2 % Normal 0.0 - 8.0 % [facility]eAutoSS Eosinophils/Leukocytes Auto (Bld) [Pure # fraction] 0.0 E9/L Normal 0.0 - 0.5 E9/L [facility]SS Lymphocytes/100 WBC (Bld) 8.8 % Low 14.0 - 50.0 % [facility]eAutoSS Lymphocytes/Leukocytes Auto (Bld) [Pure # fraction] 1.5 E9/L Normal 1.0 - 4.0 E9/L [facility]eAutoSS Monocytes/100 WBC (Bld) 12.0 % Normal 4.0 - 14.0 % [facility]eAutoSS Monocytes/Leukocytes Auto (Bld) [Pure # fraction] 2.1 E9/L High 0.2 - 1.0 E9/L [facility]SS Neutrophils/100 WBC (Bld) 78.8 % High 36.0 - 75.0 % [facility]eAutoSS Neutrophils/Leukocytes Auto (Bld) [Pure # fraction] 13.8 E9/L High 2.0 - 7.5 E9/L [facility] HEMATOLOGYOrdered By: America Aguilar on 10-10-2021 Erythrocyte distribution width (RBC) [Ratio] 13.8 % Normal 10.9 - 14.2 % [facility] Hematocrit (Bld) [Volume fraction] 41.9 % Normal 37.7 - 49.0 % [facility] Hemoglobin (Bld) [Mass/Vol] 14.5 g/dL Normal 13.5 - 17.5 gm/dL [facility] MCH (RBC) [Entitic mass] 31.6 pg Normal 27.0 - 34.0 pg [facility] MCHC (RBC) [Mass/Vol] 34.6 g/dL Normal 31.4 - 36.0 gm/dL [facility] MCV (RBC) [Entitic vol] 91.5 fL Normal 80.0 - 100.0 fL [facility] Platelet mean volume (Bld) [Entitic vol] 8.1 fL Normal 6.4 - 10.8 fL [facility] Platelets (Bld) [#/Vol] 258.0 E9/L Normal 150.0 - 500.0 E9/L [facility] RBC (Bld) [#/Vol] 4.6 E12/L Normal 4.3 - 5.9 E12/L [facility] WBC corrected for nucl RBC Auto (Bld) [#/Vol] 17.5 E9/L High 4.0 - 11.0 E9/L [facility] Comment on above: Result Comment: Juan Luis e reviewed by KD. AVITIA OTHER TESTSOrdered By: Rob Terrell on 10-10-2021 Influenzae A Ag Negative (10/10/21 2:05 PM) Normal Negative [facility] Influenzae B Ag Negative (10/10/21 2:05 PM) Normal Negative [facility] Rapid COV Int NEG Ctl Pass (10/10/21 2:05 PM) Normal [facility] Rapid COV Int POS Ctl Pass (10/10/21 2:05 PM) Normal [facility] [facility] SARS-CoV+SARS-CoV-2 (COVID-19) Ag IA.rapid Ql (Resp) Not Detected (10/10/21 2:05 PM) Normal Not Detected [facility] Vital Signs Date Time Vital Sign Value Performing Clinician Faci lity 10-23-2023 15:10-0400 Body temperature 98.06 [degF] Martín Hawthorne [facility] 10-23-2023 15:10-0400 Diastolic blood pressure 77 mm[Hg] Martín Hawthorne [facility] 10-23-2023 15:10-0400 Heart rate 88 /min Martín Hawthorne [facility] 10-23-2023 15:10-0400 Respiratory rate 18 /min Martín Hawthorne [facility] 10-23-2023 15:10-0400 SaO2% (BldA) [Mass fraction] 98 % Martín Hawthorne [facility] 10-23-2023 15:10-0400 Systolic blood pressure 111 mm[Hg] Martín Hawthorne [facility] 05-01-2023 05:39-0500 Body temperature 98.06 [degF] Nii Degroot [facility] 05-01-2023 05:39-0500 Diastolic blood pressure 79 mm[Hg] Nii Degroot [facility] 05-01-2023 05:39-0500 Heart rate 82 /min Nii Degroot [facility] 05-01-2023 05:39-0500 Respiratory rate 18 /min Nii Degroot [facility] 05-01-2023 05:39-0500 SaO2% (BldA) [Mass fraction] 98 % Nii Degroot [facility] 05-01-2023 05:39-0500 Systolic blood pressure 136 mm[Hg] Nii Degroot [facility] 01-09-2022 18:41-0400 Body temperature 99.14 [degF] Martín Hawthorne [facility] 01-09-2022 18:41-0400 Heart rate 109 /min Martín Hawthorne [facility] 01-09-2022 18:02-0400 Body temperature 99.5 [degF] Martín Hawthorne [facility] 01-09-2022 18:02-0400 Diastolic blood pressure 63 mm[Hg] Martín Hawthorne [facility] 01-09-2022 18:02-0400 Heart rate 135 /min Martín Hawthorne [facility] 01-09-2022 18:02-0400 Respiratory rate 18 /min Martín Hawthorne [facility] 01-09-2022 18:02-0400 SaO2% (BldA) [Mass fraction] 97 % Martín Hawthorne [facility] 01-09-2022 18:02-0400 Systolic blood pressure 112 mm[Hg] Martín Hawthorne [facility] 10-10-2021 16:20-0400 Diastolic blood pressure 70 mm[Hg] Nii Degroot [facility] 10-10-2021 16:20-0400 Heart rate 105 /min Nii Gael [facility] 10-10-2021 16:20-0400 Mean blood pressure 85 mm[Hg] Nii Gael [facility] 10-10-2021 16:20-0400 Respiratory rate 16 /min Nii Gael [facility] 10-10-2021 16:20-0400 SaO2% (BldA) [Mass fraction] 96 % Nii Gael [facility] 10-10-2021 16:20-0400 Systolic blood pressure 116 mm[Hg] Nii Gael [facility] 10-10-2021 16:15-0400 Hourly Rounding Nii Degroot [facility] 10-10-2021 16:15-0400 Promise to Return Nii Degroot [facility] 10-10-2021 15:49-0400 Diastolic blood pressure 78 mm[Hg] Nii Gael [facility] 10-10-2021 15:49-0400 Heart rate 118 /min Nii Gael [facility] 10-10-2021 15:49-0400 Respiratory rate 20 /min Nii Gael [facility] 10-10-2021 15:49-0400 SaO2% (BldA) [Mass fraction] 92 % Nii Gael [facility] 10-10-2021 15:49-0400 Systolic blood pressure 126 mm[Hg] Nii Gael [facility] 10-10-2021 15:45-0400 Hourly Rounding Nii Gael [facility] 10-10-2021 15:45-0400 Promise to Return Nii Gael [facility] 10-10-2021 15:28-0400 Heart rate 114 /min Nii Gael [facility] 10-10-2021 15:28-0400 SaO2% (BldA) [Mass fraction] 99 % Nii Gael [facility] 10-10-2021 15:27-0400 Heart rate 105 /min Nii Gael [facility] 10-10-2021 14:45-0400 Hourly Rounding Nii Gael [facility] 10-10-2021 14:45-0400 Promise to Return Nii Gael [facility] 10-10-2021 14:04-0400 Respiratory rate 22 /min Nii Gael [facility] 10-10-2021 13:44-0400 Diastolic blood pressure 66 mm[Hg] Nii Gael [facility] 10-10-2021 13:44-0400 Mean blood pressure 79 mm[Hg] Nii Gael [facility] 10-10-2021 13:44-0400 Systolic blood pressure 104 mm[Hg] Nii Gael [facility] 10-10-2021 13:13-0400 Body temperature 99.68 [degF] Nii Gael [facility] 10-10-2021 13:13-0400 Heart rate 118 /min Nii Gael [facility] Encounters Encounter Date Encounter Type Care Provider Facility Start: 11-02-2023 End: 11-02-2023 ambulatory JOSÉ MIGUEL LEES Not Available Start: 10-29-2023 ambulatory Misty LEWIS Facility:[facility] Start: 10-23-2023 End: 10-23-2023 Emergency department patient visit Martín Hawthorne [facility] Start: 05-01-2023 End: 05-01-2023 Emergency department patient visit Nii Degroot [facility] Start: 01-09-2022 End: 01-09-2022 Emergency department patient visit Martín Hawthorne [facility] Start: 10-10-2021 End: 10-10-2021 Emergency department patient visit Nii Degroot [facility] Procedures Date Procedure Procedure Detail Performing Clinician tubes in bilateral ears as a child Nii Gael Payers Date Payer Category Payer Worker's Compensation [phone] [id number] Self-pay 1980 Unknown [id number] 1980 Unknown [id number] 1979 Unknown [id number] Social History Date Type Detail Facility Tobacco [facility] Comment on above: current Sex Assigned At Male [facility] Tobacco smoking status No Smokin g Status Entered [facility] Functional Status Date Assessment Result Facility 10-23-2023 Functional Status N/A [facility] 05-01-2023 Functional Status N/A [facility] 01-09-2022 Functional Status N/A [facility] Hospital Discharge instructions 10-23-2023 Note Date & Type Note Facility 10-23-2023 Hospital Discharg e instructions Follow Up Care 10/23/2023 15:06:36 With:Occupational Health: [facility] [place] [phone] Address:Unknown When:10/26/2023 15:55:30 [facility] Evaluation + Plan note 10-23-2023 Note Date & Type Note Facility 10-23-2023 Evaluation + Plan note Extrac kelechi from: Title:ED Note Author:Martín Hawthorne DO Date:09/25 Sprain of left wrist (S63.50 2A: Unspecified sprain of left wrist, initial encounter) Orders: naproxen, 500 mg = 1 tab(s), Oral, BID, Take one tab by mouth two times a day, # 14 tab(s), Refills(s) 0, Pharmacy: [id number], 175.3, cm, 10/23/23 15:12:00 EDT, Height/Length Dosing, 84.8, kg, 10/23/23 15:12:00 EDT, Weight Dosing Splint Application Wrist XR Forearm 2 Views Left XR Wrist 3+ Views Left [facility] Evaluation + Plan note 05-01-2023 Note Date & Type Note Facility 05-01-2023 Evaluation + Plan note Extrac kelechi from: Title:ED Note Author:Nii Degroot DO Date:07/01/22 Dental abscess (K04.7: Peria pical abscess without sinus) Orders: clindamycin, 300 mg = 2 cap(s), Cap, Oral, Once, Stop date 05/01/23 5:47:00 EST, STAT, Start date 05/01/23 5:47:00 EST, 05/01/23 5:47:00 EST clindamycin, 300 mg = 1 cap(s), Oral, q8hr, X 7 day(s), # 21 cap(s), Refills(s) 0, Pharmacy: [id number], 175.3, cm, 05/01/23 5:46:00 EST, Height/Length Dosing, 93.2, kg, 05/01/23 5:46:00 EST, Weight Dosing [facility] Hospital Discharge instructions 05-01-2023 Note Date & Type Note Facility 05-01-2023 Hospital Discharg e instructions Patient Education 05/01/2023 05:52:09 Dental Pain Dental Pain Dental pain is often a sign that something is wrong with your teeth or gums. It is also something that can occur following dental treatment. If you have dental pain, it is important to contact your dental care provider, especially if the cause of the pain has not been determined. Dental pain may be of varying intensity and can be caused by many things, including: Tooth decay (cavities or caries). Cavities are caused by bacteria that produce acids that irritate the nerve of your tooth, making it sensitive to air and hot or cold temperatures. This eventually causes discomfort or pain. Abscess or infection. Once the bacteria reach the inner part of the tooth (pulp), a bacterial infection (dental abscess) can occur. Pus typically collects at the end of the root of a tooth. Injury. A crack in the tooth. Gum recession exposing the root, and possibly the nerves, of a tooth. Gum (periodontal)disease. Abnormal grinding or clenching. Poor or improper home care. An unknown reason (idiopathic). Your pain may be mild or severe. It may occur when you are: Chewing. Exposed to hot or cold temperatures. Eating or drinking sugary foods or beverages, such as soda or candy. Your pain may be constant, or it may come and go without cause. Follow these instructions at home: The following actions may help to lessen any discomfort that you are feeling before or after getting dental care. Medicines Take iqnq-orp-efejjiv and prescription medicines only as told by your dental care provider. If you were prescribed an antibiotic medicine, take it as told by your dental care provider. Do not stop taking the antibiotic even if you start to feel better. Eating and drinking Avoid foods or drinks that cause you pain, such as: Very hot or very cold foods or drinks. Sweet or sugary foods or drinks. Managing pain and swelling Ice can sometimes be used to reduce pain and swelling, especially if the pain is following dental treatment. If directed, put ice on the painful area of your face. To do this: ?Put ice in a plastic bag. ?Place a towel between your skin and the bag. ?Leave the ice on for 20 minutes, 2 3 times a day. ?Remove the ice if your skin turns bright red. This is very important. If you cannot feel pain, heat, or cold, you have a greater risk of damage to the area. Brushing your teeth To keep your mouth and gums healthy, brush your teeth twice a day using a fluoride toothpaste. Use a toothpaste made for sensitive teeth as directed by your dental care provider, especially if the root is exposed. Always brush your teeth with a soft-bristled toothbrush. This will help prevent irritation to your gums. General instructions Floss at least once a day. Do not apply heat to the outside of the face. Gargle with a mixture of salt and water 3 4 times a day or as needed. To make salt water, completely dissolve 1 tsp (3 6 g) of salt in 1 cup (237 mL) of warm water. Keep all follow-up visits. This is important. Contact a dental care provider if: You have any unexplained dental pain. Your pain is not controlled with medicines. Your symptoms get worse. You have new symptoms. Get help right away if: You are unable to open your mouth. You are having trouble breathing or swallowing. You have a fever. You notice that your face, neck, or jaw is swollen. These symptoms may represent a serious problem that is an emergency. Do not wait to see if the symptoms will go away. Get medical help right away. Call your local emergency services (911 in the [place] Do not drive yourself to the hospital. Summary Dental pain may be caused by many things, including tooth decay and infection. Your pain may be mild or severe. Take umkw-rap-nynxilx and prescription medicines only as told by your dental care provider. Watch your dental pain for any changes. Let your dental care provider know if your symptoms get worse. This information is not intended to replace advice given to you by your health care provider. Make sure you discuss any questions you have with your health care provider. Document Revised: 03/16/2021 Document Reviewed: 03/16/2021 [employer] Patient Education 2022 [employer]. 05/01/2023 05:52:09 Dental Abscess Dental Abscess A dental abscess is an infection around a tooth that may involve pain, swelling, and a collection of pus, as well as other symptoms. Treatment is important to help with symptoms and to prevent the infection from spreading. The general types of dental abscesses are: Pulpal abscess. This abscess may form from the inner part of the tooth (pulp). Periodontal abscess. This abscess may form from the gum. What are the causes? This condition is caused by a bacterial infection in or around the tooth. It may result from: Severe tooth decay (cavities). Trauma to the tooth, such as a broken or chipped tooth. What increases the risk? This condition is more likely to develop in males. It is also more likely to develop in people who: Have cavities. Have severe gum disease. Eat sugary snacks between meals. Use tobacco products. Have diabetes. Have a weakened disease-fighting system (immune system). Do not brush and care for their teeth regularly. What are the signs or symptoms? Mild symptoms of this condition include: Tenderness. Bad breath. Fever. A bitter taste in the mouth. Pain in and around the infected tooth. Moderate symptoms of this condition include: Swollen neck glands. Chills. Pus drainage. Swelling and redness around the infected tooth, in the mouth, or in the face. Severe pain in and around the infected tooth. Severe symptoms of this condition include: Difficulty swallowing. Difficulty opening the mouth. Nausea. Vomiting. How is this diagnosed? This condition is diagnosed based on: Your symptoms and your medical and dental history. An examination of the infected tooth. During the exam, your dental care provider may tap on the infected tooth. You may also need to have X-rays taken of the affected area. How is this treated? This condition is treated by getting rid of the infection. This may be done with: Antibiotic medicines. These may be used in certain situations. Antibacterial mouth rinse. Incision and drainage. This procedure is done by making an incision in the abscess to drain out the pus. Removing pus is the first priority in treating an abscess. A root canal. This may be performed to save the tooth. Your dental care provider accesses the visible part of your tooth (crown) with a drill and removes any infected pulp. Then the space is filled and sealed off. Tooth extraction. The tooth is pulled out if it cannot be saved by other treatment. You may also receive treatment for pain, such as: Acetaminophen or NSAIDs. Gels that contain a numbing medicine. An injection to block the pain near your nerve. Follow these instructions at home: Medicines Take oftk-hmw-tykdjbs and prescription medicines only as told by your dental care provider. If you were prescribed an antibiotic, take it as told by your dental care provider. Do not stop taking the antibiotic even if you start to feel better. If you were prescribed a gel that contains a numbing medicine, use it exactly as told in the directions. Do not use these gels for children who are younger than 2 years of age. Use an antibacterial mouth rinse as told by your dental care provider. General instructions Gargle with a mixture of salt and water 3 4 times a day or as needed. To make salt water, completely dissolve 1 tsp (3 6 g) of salt in 1 cup (237 mL) of warm water. Eat a soft diet while your abscess is healing. Drink enough fluid to keep your urine pale yellow. Do not apply heat to the outside of your mouth. Do not use any products that contain nicotine or tobacco. These products include cigarettes, chewing tobacco, and vaping devices, such as e-cigarettes. If you need help quitting, ask your dental care provider. Keep all follow-up visits. This is important. How is this prevented? Excellent dental home care, which includes brushing your teeth every morning and night with fluoride toothpaste. Floss one time each day. Get regularly scheduled dental cleanings. Consider having a dental sealant applied on teeth that have deep grooves to prevent cavities. Drink fluoridated water regularly. This includes most tap water. Check the label on bottled water to see if it contains fluoride. Reduce or eliminate sugary drinks. Eat healthy meals and snacks. Wear a mouth guard or face shield to protect your teeth while playing sports. Contact a health care provider if: Your pain is worse and is not helped by medicine. You have swelling. You see pus around the tooth. You have a fever or chills. Get help right away if: Your symptoms suddenly get worse. You have a very bad headache. You have problems breathing or swallowing. You have trouble opening your mouth. You have swelling in your neck or around your eye. These symptoms may represent a serious problem that is an emergency. Do not wait to see if the symptoms will go away. Get medical help right away. Call your local emergency services (911 in the [place] Do not drive yourself to the hospital. Summary A dental abscess is a collection of pus in or around a tooth that results from an infection. A dental abscess may result from severe tooth decay, trauma to the tooth, or severe gum disease around a tooth. Symptoms include severe pain, swelling, redness, and drainage of pus in and around the infected tooth. The first priority in treating a dental abscess is to drain out the pus. Treatment may also involve removing damage inside the tooth (root canal) or extracting the tooth. This information is not intended to replace advice given to you by your health care provider. Make sure you discuss any questions you have with your health care provider. Document Revised: 08/18/2021 Document Reviewed: 08/18/2021 [employer] Patient Education 2022 [employer]. Follow Up Care 05/01/2023 05:39:50 With:[facility] Address: [address] [place], [place] [id number] Business (1) When:05/04/2023 05:49:28 Comments:Call the office of your primary care doctor to arrange for follow-up within the above-stated timeframe. Follow-up with your primary care doctor about this ED visit. You should review your labs, imaging, and diagnoses from this ED visit with your primary care physician. There are occasionally non-emergent findings that require additional follow-up after your ED visit. If you were prescribed medications you should discuss possible side-effects and drug interactions with your pharmacist. Call 911 or go to the nearest Emergency Department if you develop any new or worsening symptoms. [facility] Hospital Discharge instructions 01-09-2022 Note Date & Type Note Facility 01-09-2022 Hospital Discharg e instructions Patient Education 01/09/2022 19:41:45 Prevent the Spread of COVID-19 if You Are Sick - [facility] Prevent the Spread of COVID-19 if You Are Sick If you are sick with COVID-19 or think you might have COVID-19, follow the steps below to care for yourself and to help protect other people in your home and community. Stay home except to get medical care. Stay home. Most people with COVID-19 have mild illness and are able to recover at home without medical care. Do not leave your home, except to get medical care. Do not visit public areas. Take care of yourself. Get rest and stay hydrated. Take over the-counter medicines, such as acetaminophen, to help you feel better. Stay in touch with your doctor. Call before you get medical care. Be sure to get care if you have trouble breathing, or have any other emergency warning signs, or if you think it is an emergency. Avoid public transportation, ride-sharing, or taxis. Separate yourself from other people and pets in your home. As much as possible, stay in a specific room and away from other people and pets in your home. Also, you should use a separate bathroom, if available. If you need to be around other people or animals in or outside of the home, wear a cloth face covering. ?See COVID-19 and Animals if you have questions about pets:https://www.cdc.gov/coronav irus/2019-ncov/faq. html#INPOP39kdaudwr ?Additional guidance is available for those living in close quarters. (https://www.cdc.gov/coronavirus /2019-ncov/kmcws-vxth-yadaxn/joao mwl-ir-jmump-quarters.html) and shared housing (https://www.cdc.gov/coronavirus /2019-ncov/ manqe-roxr-pcxvtl/shared-housing /index.html). Monitor your symptoms. Symptoms of COVID-19 include fever, cough, and shortness of breath but other symptoms may be present as well. Follow care instructions from your healthcare provider and local health department. Your local health authorities will give instructions on checking your symptoms and reporting information. When to Seek Emergency Medical Attention Look for emergency warning signs* for COVID-19. If someone is showing any of these signs, seek emergency medical care immediately: Trouble breathing Persistent pain or pressure in the chest New confusion Bluish lips or face Inability to wake or stay awake *This list is not all possible symptoms. Please call your medical provider for any other symptoms that are severe or concerning to you. Call 911 or call ahead to your local emergency facility: Notify the inseam trimming machine operator that you are seeking care for someone who has or may have COVID-19. Call ahead before visiting your doctor. Call ahead. Many medical visits for routine care are being postponed or done by phone or telemedicine. If you have a medical appointment that cannot be postponed, call your doctor's office, and tell them you have or may have COVID-19. If you are sick, wear a cloth covering over your nose and mouth. You should wear a cloth face covering over your nose and mouth if you must be around other people or animals, including pets (even at home). You don't need to wear the cloth face covering if you are alone. If you can't put on a cloth face covering (because of trouble breathing for example), cover your coughs and sneezes in some other way. Try to stay at least 6 feet away from other people. This will help protect the people around you. Cloth face coverings should not be placed on young children under age 2 years, anyone who has trouble breathing, or anyone who is not able to remove the covering without help. Note: During the COVID-19 pandemic, medical grade facemasks are reserved for healthcare workers and some first responders. You may need to make a cloth face covering using a scarf or bandana. Cover your coughs and sneezes. Cover your mouth and nose with a tissue when you cough or sneeze. Throw used tissues in a lined trash can. Immediately wash your hands with soap and water for at least 20 seconds. If soap and water are not available, clean your hands with an alcohol-based hand graduate teaching associate that contains at least 60% alcohol. Clean your hands often. Wash your hands often with soap and water for at least 20 seconds. This is especially important after blowing your nose, coughing, or sneezing; going to the bathroom; and before eating or preparing food. Use hand graduate teaching associate if soap and water are not available. Use an alcohol-based hand graduate teaching associate with at least 60% alcohol, covering all surfaces of your hands and rubbing them together until they feel dry. Soap and water are the best option, especially if your hands are visibly dirty. Avoid touching your eyes, nose, and mouth with unwashed hands. Avoid sharing personal household items. Do not share dishes, drinking glasses, cups, eating utensils, towels, or bedding with other people in your home. Wash these items thoroughly after using them with soap and water or put them in the electrical engineering drafting officer. Clean all high-touch surfaces everyday. Clean and disinfect high-touch surfaces in your sick room and bathroom. Let someone else clean and disinfect surfaces in common areas, but not your bedroom and bathroom. If a caregiver or other person needs to clean and disinfect a sick person's bedroom or bathroom, they should do so on an as-needed basis. The caregiver/other person should wear a cloth face covering and wait as long as possible after the sick person has used the bathroom. High-touch surfaces include phones, remote controls, counters, tabletops, doorknobs, bathroom fixtures, toilets, keyboards, tablets, and bedside tables. Clean and disinfect areas that may have blood, stool, or body fluids on them. Use household skin grader and disinfectants. Clean the area or item with soap and water or another detergent if it is dirty. Then use a household disinfectant. ?Be sure to follow the instructions on the label to ensure safe and effective use of the product. Many products recommend keeping the surface wet for several minutes to ensure germs are killed. Many also recommend precautions such as wearing gloves and making sure you have good ventilation during use of the product. ?Most EPA-registered household disinfectants should be effective. When you can be around others after you had or likely had COVID-19 When you can be around others (end home isolation) depends on different factors for different situations. I think or know I had COVID-19, and I had symptoms ?You can be with others after ?3 days with no fever AND ?symptoms improved AND ?10 days since symptoms first appeared ?Depending on your healthcare provider's advice and availability of testing, you might get tested to see if you still have COVID-19. If you will be tested, you can be around others when you have no fever, symptoms have improved, and you receive two negative test results in a row, at least 24 hours apart. I tested positive for COVID-19 but had no symptoms ?If you continue to have no symptoms, you can be with others after: ?10 days have passed since test ?Depending on your healthcare provider's advice and availability of testing, you might get tested to see if you still have COVID-19. If you will be tested, you can be around others after you receive two negative test results in a row, at least 24 hours apart. ?If you develop symptoms after testing positive, follow the guidance above for I think or know I had COVID, and I had symptoms. cdc.gov/coronavirus 12/04/2019 This information is not intended to replace advice given to you by your health care provider. Make sure you discuss any questions you have with your health care provider. Document Released: 10/07/2019 Document Revised: 12/23/2019 Document Reviewed: 12/23/2019 [employer] Patient Education 2019 [employer]. 01/09/2022 19:41:45 COVID-19: How to Protect Yourself and Others - [facility] COVID-19: How to Protect Yourself and Others Know how it spreads There is currently no vaccine to prevent coronavirus disease 2019 (COVID-19). The best way to prevent illness is to avoid being exposed to this virus. The virus is thought to spread mainly from wwefho-wm-hwvsrq. ?Between people who are in close contact with one another (within about 6 feet). ?Through respiratory droplets produced when an infected person coughs, sneezes or talks. ?These droplets can land in the mouths or noses of people who are nearby or possibly be inhaled into the lungs. ?Some recent studies have suggested that COVID-19 may be spread by people who are not showing symptoms. Everyone should Clean your hands often Wash your hands often with soap and water for at least 20 seconds especially after you have been in a public place, or after blowing your nose, coughing, or sneezing. If soap and water are not readily available, use a hand graduate teaching associate that contains at least 60% alcohol. Cover all surfaces of your hands and rub them together until they feel dry. Avoid touching your eyes, nose, and mouth with unwashed hands. Avoid close contact Limit contact with others as much as possible. Avoid close contact with people who are sick. Put distance between yourself and other people. ?Remember that some people without symptoms may be able to spread virus. ?This is especially important for people who are at higher risk of getting very sick.www.cdc.gov/coronavirus/201 9-ncov/ufzb-acbwe-hucpezygoco/pe muxj-tg-hmoerp-risk.html Cover your mouth and nose with a cloth face cover when around others You could spread COVID-19 to others even if you do not feel sick. Everyone should wear a cloth face covering in public settings and when around people not living in their household, especially when social distancing is difficult to maintain. ?Cloth face coverings should not be placed on young children under age 2, anyone who has trouble breathing, or is unconscious, incapacitated or otherwise unable to remove the mask without assistance. The cloth face cover is meant to protect other people in case you are infected. Do NOT use a facemask meant for a healthcare worker. Continue to keep about 6 feet between yourself and others. The cloth face cover is not a substitute for social distancing. Cover coughs and sneezes Always cover your mouth and nose with a tissue when you cough or sneeze or use the inside of your elbow. Throw used tissues in the trash. Immediately wash your hands with soap and water for at least 20 seconds. If soap and water are not readily available, clean your hands with a hand graduate teaching associate that contains at least 60% alcohol. Clean and disinfect Clean AND disinfect frequently touched surfaces daily. This includes tables, doorknobs, light switches, countertops, handles, desks, phones, keyboards, toilets, faucets, and sinks. www.cdc.gov/coronavirus/2019-nco v/vzycwpy-kkqgzgg-zgpf/disinfect usw-ylox-tncg.html If surfaces are dirty, clean them: Use detergent or soap and water prior to disinfection. Then, use a household disinfectant. You can see a list of EPA-registered household disinfectants here. cdc.gov/coronavirus 12/23/2019 This information is not intended to replace advice given to you by your health care provider. Make sure you discuss any questions you have with your health care provider. Document Released: 10/07/2019 Document Revised: 01/01/2020 Document Reviewed: 01/01/2020 [employer] Patient Education 2020 [employer]. 01/09/2022 19:41:45 COVID-19 Frequently Asked Questions COVID-19 Frequently Asked Questions COVID-19 (coronavirus disease) is an infection that is caused by a large family of viruses. Some viruses cause illness in people and others cause illness in animals like camels, cats, and bats. In some cases, the viruses that cause illness in animals can spread to humans. Where did the coronavirus come from? In May 2019, [place] told the World Health Organization (WHO) of several cases of lung disease (human respiratory illness). These cases were linked to an open seafood and livestock market in the city of [facility]. The link to the seafood and livestock market suggests that the virus may have spread from animals to humans. However, since that first outbreak in May, the virus has also been shown to spread from person to person. What is the name of the disease and the virus? Disease name Early on, this disease was called novel coronavirus. This is because scientists determined that the disease was caused by a new (novel) respiratory virus. The World Health Organization (WHO) has now named the disease COVID-19, or coronavirus disease. Virus name The virus that causes the disease is called severe acute respiratory syndrome coronavirus 2 (SARS-CoV-2). More information on disease and virus naming World Health Organization (WHO): www.who.int/emergencies/diseases /hnmah-imwghghzstq-5563/technica l-guidance/mxsmgf-jiw-twjnjrohhf s-disease-(covid-2019)-and-the-v meii-rqbs-tsaufk-it Who is at risk for complications from coronavirus disease? Some people may be at higher risk for complications from coronavirus disease. This includes older adults and people who have chronic diseases, such as heart disease, diabetes, and lung disease. If you are at higher risk for complications, take these extra precautions: Avoid close contact with people who are sick or have a fever or cough. Stay at least 3 6 ft (1 2 m) away from them, if possible. Wash your hands often with soap and water for at least 20 seconds. Avoid touching your face, mouth, nose, or eyes. Keep supplies on hand at home, such as food, medicine, and cleaning supplies. Stay home as much as possible. Avoid social gatherings and travel. How does coronavirus disease spread? The virus that causes coronavirus disease spreads easily from person to person (is contagious). There are also cases of community-spread disease. This means the disease has spread to: People who have no known contact with other infected people. People who have not traveled to areas where there are known cases. It appears to spread from one person to another through droplets from coughing or sneezing. Can I get the virus from touching surfaces or objects? There is still a lot that we do not know about the virus that causes coronavirus disease. Scientists are basing a lot of information on what they know about similar viruses, such as: Viruses cannot generally survive on surfaces for long. They need a human body (host) to survive. It is more likely that the virus is spread by close contact with people who are sick (direct contact), such as through: ?Shaking hands or hugging. ?Breathing in respiratory droplets that travel through the air. This can happen when an infected person coughs or sneezes on or near other people. It is less likely that the virus is spread when a person touches a surface or object that has the virus on it (indirect contact). The virus may be able to enter the body if the person touches a surface or object and then touches his or her face, eyes, nose, or mouth. Can a person spread the virus without having symptoms of the disease? It may be possible for the virus to spread before a person has symptoms of the disease, but this is most likely not the main way the virus is spreading. It is more likely for the virus to spread by being in close contact with people who are sick and breathing in the respiratory droplets of a sick person's cough or sneeze. What are the symptoms of coronavirus disease? Symptoms vary from person to person and can range from mild to severe. Symptoms may include: Fever. Cough. Tiredness, weakness, or fatigue. Fast breathing or feeling short of breath. These symptoms can appear anywhere from 2 to 14 days after you have been exposed to the virus. If you develop symptoms, call your health care provider. People with severe symptoms may need hospital care. If I am exposed to the virus, how long does it take before symptoms start? Symptoms of coronavirus disease may appear anywhere from 2 to 14 days after a person has been exposed to the virus. If you develop symptoms, call your health care provider. Should I be tested for this virus? Your health care provider will decide whether to test you based on your symptoms, history of exposure, and your risk factors. How does a health care provider test for this virus? Health care providers will collect samples to send for testing. Samples may include: Taking a swab of fluid from the nose. Taking fluid from the lungs by having you cough up mucus (sputum) into a sterile cup. Taking a blood sample. Taking a stool or urine sample. Is there a treatment or vaccine for this virus? Currently, there is no vaccine to prevent coronavirus disease. Also, there are no medicines like antibiotics or antivirals to treat the virus. A person who becomes sick is given supportive care, which means rest and fluids. A person may also relieve his or her symptoms by using mtvn-thd-eaeypza medicines that treat sneezing, coughing, and runny nose. These are the same medicines that a person takes for the common cold. If you develop symptoms, call your health care provider. People with severe symptoms may need hospital care. What can I do to protect myself and my family from this virus? You can protect yourself and your family by taking the same actions that you would take to prevent the spread of other viruses. Take the following actions: Wash your hands often with soap and water for at least 20 seconds. If soap and water are not available, use alcohol-based hand graduate teaching associate. Avoid touching your face, mouth, nose, or eyes. Cough or sneeze into a tissue, sleeve, or elbow. Do not cough or sneeze into your hand or the air. ?If you cough or sneeze into a tissue, throw it away immediately and wash your hands. Disinfect objects and surfaces that you frequently touch every day. Avoid close contact with people who are sick or have a fever or cough. Stay at least 3 6 ft (1 2 m) away from them, if possible. Stay home if you are sick, except to get medical care. Call your health care provider before you get medical care. Make sure your vaccines are up to date. Ask your health care provider what vaccines you need. What should I do if I need to travel? Follow travel recommendations from your local health authority, the CDC, and WHO. Travel information and advice Centers for Disease Control and Prevention (CDC): www.cdc.gov/coronavirus/2019-nco v/travelers/index.html World Health Organization (WHO): www.who.int/emergencies/diseases /rlftx-ovylnzsytul-5443/travel-a dvice Know the risks and take action to protect your health You are at higher risk of getting coronavirus disease if you are traveling to areas with an outbreak or if you are exposed to travelers from areas with an outbreak. Wash your hands often and practice good hygiene to lower the risk of catching or spreading the virus. What should I do if I am sick? General instructions to stop the spread of infection Wash your hands often with soap and water for at least 20 seconds. If soap and water are not available, use alcohol-based hand graduate teaching associate. Cough or sneeze into a tissue, sleeve, or elbow. Do not cough or sneeze into your hand or the air. If you cough or sneeze into a tissue, throw it away immediately and wash your hands. Stay home unless you must get medical care. Call your health care provider or local health authority before you get medical care. Avoid public areas. Do not take public transportation, if possible. If you can, wear a mask if you must go out of the house or if you are in close contact with someone who is not sick. Keep your home clean Disinfect objects and surfaces that are frequently touched every day. This may include: ?Counters and tables. ?Doorknobs and light switches. ?Sinks and faucets. ?Electronics such as phones, remote controls, keyboards, computers, and tablets. Wash dishes in hot, soapy water or use a electrical engineering drafting officer. Air-dry your dishes. Wash laundry in hot water. Prevent infecting other household members Let healthy household members care for children and pets, if possible. If you have to care for children or pets, wash your hands often and wear a mask. Sleep in a different bedroom or bed, if possible. Do not share personal items, such as razors, toothbrushes, deodorant, gallegos, brushes, towels, and washcloths. Where to find more information Centers for Disease Control and Prevention (CDC) Information and news updates: www.cdc.gov/coronavirus/2019-nco v World Health Organization (WHO) Information and news updates: www.who.int/emergencies/diseases /apmho-tfggvsgnkrf-1926 Coronavirus health topic: www.who.int/health-topics/gale virus Questions and answers on COVID-19: www.who.int/news-room/q-a-detail /t-v-lompviofgmjdl Global tracker: who.[employer] [place] [employer] (AAP) Information for families: www.healthychildren.org/[place]/ health-issues/conditions/chest-l ungs/Pages/5677-Fveqb-Ezklgpneqv s.aspx The coronavirus situation is changing rapidly. Check your local health authority website or the CDC and WHO websites for updates and news. When should I contact a health care provider? Contact your health care provider if you have symptoms of an infection, such as fever or cough, and you: ?Have been near anyone who is known to have coronavirus disease. ?Have come into contact with a person who is suspected to have coronavirus disease. ?Have traveled outside of the country. When should I get emergency medical care? Get help right away by calling your local emergency services (911 in the [place] if you have: ?Trouble breathing. ?Pain or pressure in your chest. ?Confusion. ?Blue-tinged lips and fingernails. ?Difficulty waking from sleep. ?Symptoms that get worse. Let the emergency medical personnel know if you think you have coronavirus disease. Summary A new respiratory virus is spreading from person to person and causing COVID-19 (coronavirus disease). The virus that causes COVID-19 appears to spread easily. It spreads from one person to another through droplets from coughing or sneezing. Older adults and those with chronic diseases are at higher risk of disease. If you are at higher risk for complications, take extra precautions. There is currently no vaccine to prevent coronavirus disease. There are no medicines, such as antibiotics or antivirals, to treat the virus. You can protect yourself and your family by washing your hands often, avoiding touching your face, and covering your coughs and sneezes. This information is not intended to replace advice given to you by your health care provider. Make sure you discuss any questions you have with your health care provider. Document Released: 10/07/2019 Document Revised: 10/07/2019 Document Reviewed: 10/07/2019 [employer] Patient Education 2020 [employer] 01/09/2022 19:41:45 COVID-19 COVID-19 COVID-19 is a respiratory infection that is caused by a virus called severe acute respiratory syndrome coronavirus 2 (SARS-CoV-2). The disease is also known as coronavirus disease or novel coronavirus. In some people, the virus may not cause any symptoms. In others, it may cause a serious infection. The infection can get worse quickly and can lead to complications, such as: Pneumonia, or infection of the lungs. Acute respiratory distress syndrome or ARDS. This is fluid build-up in the lungs. Acute respiratory failure. This is a condition in which there is not enough oxygen passing from the lungs to the body. Sepsis or septic shock. This is a serious bodily reaction to an infection. Blood clotting problems. Secondary infections due to bacteria or fungus. The virus that causes COVID-19 is contagious. This means that it can spread from person to person through droplets from coughs and sneezes (respiratory secretions). What are the causes? This illness is caused by a virus. You may catch the virus by: Breathing in droplets from an infected person's cough or sneeze. Touching something, like a table or a doorknob, that was exposed to the virus (contaminated) and then touching your mouth, nose, or eyes. What increases the risk? Risk for infection You are more likely to be infected with this virus if you: Live in or travel to an area with a COVID-19 outbreak. Come in contact with a sick person who recently traveled to an area with a COVID-19 outbreak. Provide care for or live with a person who is infected with COVID-19. Risk for serious illness You are more likely to become seriously ill from the virus if you: Are 65 years of age or older. Have a long-term disease that lowers your body's ability to fight infection (immunocompromised). Live in a residential or long-term care facility. Have a long-term (chronic) disease such as: ?Chronic lung disease, including chronic obstructive pulmonary disease or asthma ?Heart disease. ?Diabetes. ?Chronic kidney disease. ?Liver disease. Are obese. What are the signs or symptoms? Symptoms of this condition can range from mild to severe. Symptoms may appear any time from 2 to 14 days after being exposed to the virus. They include: A fever. A cough. Difficulty breathing. Chills. Muscle pains. A sore throat. Loss of taste or smell. Some people may also have stomach problems, such as nausea, vomiting, or diarrhea. Other people may not have any symptoms of COVID-19. How is this diagnosed? This condition may be diagnosed based on: Your signs and symptoms, especially if: ?You live in an area with a COVID-19 outbreak. ?You recently traveled to or from an area where the virus is common. ?You provide care for or live with a person who was diagnosed with COVID-19. A physical exam. Lab tests, which may include: ?A nasal swab to take a sample of fluid from your nose. ?A throat swab to take a sample of fluid from your throat. ?A sample of mucus from your lungs (sputum). ?Blood tests. Imaging tests, which may include, X-rays, CT scan, or ultrasound. How is this treated? At present, there is no medicine to treat COVID-19. Medicines that treat other diseases are being used on a trial basis to see if they are effective against COVID-19. Your health care provider will talk with you about ways to treat your symptoms. For most people, the infection is mild and can be managed at home with rest, fluids, and qmdc-qki-ysbggki medicines. Treatment for a serious infection usually takes places in a hospital intensive care unit (ICU). It may include one or more of the following treatments. These treatments are given until your symptoms improve. Receiving fluids and medicines through an IV. Supplemental oxygen. Extra oxygen is given through a tube in the nose, a face mask, or a mosley. Positioning you to lie on your stomach (prone position). This makes it easier for oxygen to get into the lungs. Continuous positive airway pressure (CPAP) or bi-level positive airway pressure (BPAP) machine. This treatment uses mild air pressure to keep the airways open. A tube that is connected to a motor delivers oxygen to the body. Ventilator. This treatment moves air into and out of the lungs by using a tube that is placed in your windpipe. Tracheostomy. This is a procedure to create a hole in the neck so that a breathing tube can be inserted. Extracorporeal membrane oxygenation (ECMO). This procedure gives the lungs a chance to recover by taking over the functions of the heart and lungs. It supplies oxygen to the body and removes carbon dioxide. Follow these instructions at home: Lifestyle If you are sick, stay home except to get medical care. Your health care provider will tell you how long to stay home. Call your health care provider before you go for medical care. Rest at home as told by your health care provider. Do not use any products that contain nicotine or tobacco, such as cigarettes, e-cigarettes, and chewing tobacco. If you need help quitting, ask your health care provider. Return to your normal activities as told by your health care provider. Ask your health care provider what activities are safe for you. General instructions Take zdlf-ivm-ayzvmgn and prescription medicines only as told by your health care provider. Drink enough fluid to keep your urine pale yellow. Keep all follow-up visits as told by your health care provider. This is important. How is this prevented? There is no vaccine to help prevent COVID-19 infection. However, there are steps you can take to protect yourself and others from this virus. To protect yourself: Do not travel to areas where COVID-19 is a risk. The areas where COVID-19 is reported change often. To identify high-risk areas and travel restrictions, check the CDC travel website: wwwnc.cdc.gov/travel/notices If you live in, or must travel to, an area where COVID-19 is a risk, take precautions to avoid infection. ?Stay away from people who are sick. ?Wash your hands often with soap and water for 20 seconds. If soap and water are not available, use an alcohol-based hand graduate teaching associate. ?Avoid touching your mouth, face, eyes, or nose. ?Avoid going out in public, follow guidance from your state and local health authorities. ?If you must go out in public, wear a cloth face covering or face mask. ?Disinfect objects and surfaces that are frequently touched every day. This may include: ?Counters and tables. ?Doorknobs and light switches. ?Sinks and faucets. ?Electronics, such as phones, remote controls, keyboards, computers, and tablets. To protect others: If you have symptoms of COVID-19, take steps to prevent the virus from spreading to others. If you think you have a COVID-19 infection, contact your health care provider right away. Tell your health care team that you think you may have a COVID-19 infection. Stay home. Leave your house only to seek medical care. Do not use public transport. Do not travel while you are sick. Wash your hands often with soap and water for 20 seconds. If soap and water are not available, use alcohol-based hand graduate teaching associate. Stay away from other members of your household. Let healthy household members care for children and pets, if possible. If you have to care for children or pets, wash your hands often and wear a mask. If possible, stay in your own room, separate from others. Use a different bathroom. Make sure that all people in your household wash their hands well and often. Cough or sneeze into a tissue or your sleeve or elbow. Do not cough or sneeze into your hand or into the air. Wear a cloth face covering or face mask. Where to find more information Centers for Disease Control and Prevention: www.cdc.gov/coronavirus/2019-nco v/index.html World Health Organization: www.who.int/health-topics/gale virus Contact a health care provider if: You live in or have traveled to an area where COVID-19 is a risk and you have symptoms of the infection. You have had contact with someone who has COVID-19 and you have symptoms of the infection. Get help right away if: You have trouble breathing. You have pain or pressure in your chest. You have confusion. You have bluish lips and fingernails. You have difficulty waking from sleep. You have symptoms that get worse. These symptoms may represent a serious problem that is an emergency. Do not wait to see if the symptoms will go away. Get medical help right away. Call your local emergency services (911 in the [place] Do not drive yourself to the hospital. Let the emergency medical personnel know if you think you have COVID-19. Summary COVID-19 is a respiratory infection that is caused by a virus. It is also known as coronavirus disease or novel coronavirus. It can cause serious infections, such as pneumonia, acute respiratory distress syndrome, acute respiratory failure, or sepsis. The virus that causes COVID-19 is contagious. This means that it can spread from person to person through droplets from coughs and sneezes. You are more likely to develop a serious illness if you are 65 years of age or older, have a weak immunity, live in a residential, or have chronic disease. There is no medicine to treat COVID-19. Your health care provider will talk with you about ways to treat your symptoms. Take steps to protect yourself and others from infection. Wash your hands often and disinfect objects and surfaces that are frequently touched every day. Stay away from people who are sick and wear a mask if you are sick. This information is not intended to replace advice given to you by your health care provider. Make sure you discuss any questions you have with your health care provider. Document Released: 07/17/2019 Document Revised: 11/06/2019 Document Reviewed: 07/17/2019 [employer] Patient Education 2019 [employer]. 01/09/2022 19:41:45 Viral Illness, Adult Viral Illness, Adult Viruses are tiny germs that can get into a person's body and cause illness. There are many different types of viruses, and they cause many types of illness. Viral illnesses can range from mild to severe. They can affect various parts of the body. Common illnesses that are caused by a virus include colds and the flu. Viral illnesses also include serious conditions such as HIV/AIDS (human immunodeficiency virus/acquired immunodeficiency syndrome). A few viruses have been linked to certain cancers. What are the causes? Many types of viruses can cause illness. Viruses invade cells in your body, multiply, and cause the infected cells to malfunction or . When the cell dies, it releases more of the virus. When this happens, you develop symptoms of the illness, and the virus continues to spread to other cells. If the virus takes over the function of the cell, it can cause the cell to divide and grow out of control, as is the case when a virus causes cancer. Different viruses get into the body in different ways. You can get a virus by: Swallowing food or water that is contaminated with the virus. Breathing in droplets that have been coughed or sneezed into the air by an infected person. Touching a surface that has been contaminated with the virus and then touching your eyes, nose, or mouth. Being bitten by an insect or animal that carries the virus. Having sexual contact with a person who is infected with the virus. Being exposed to blood or fluids that contain the virus, either through an open cut or during a transfusion. If a virus enters your body, your body's defense system (immune system) will try to fight the virus. You may be at higher risk for a viral illness if your immune system is weak. What are the signs or symptoms? Symptoms vary depending on the type of virus and the location of the cells that it invades. Common symptoms of the main types of viral illnesses include: Cold and flu viruses Fever. Headache. Sore throat. Muscle aches. Nasal congestion. Cough. Digestive system (gastrointestinal) viruses Fever. Abdominal pain. Nausea. Diarrhea. Liver viruses (hepatitis) Loss of appetite. Tiredness. Yellowing of the skin (jaundice). Brain and spinal cord viruses Fever. Headache. Stiff neck. Nausea and vomiting. Confusion or sleepiness. Skin viruses Warts. Itching. Rash. Sexually transmitted viruses Discharge. Swelling. Redness. Rash. How is this treated? Viruses can be difficult to treat because they live within cells. Antibiotic medicines do not treat viruses because these drugs do not get inside cells. Treatment for a viral illness may include: Resting and drinking plenty of fluids. Medicines to relieve symptoms. These can include fqkh-uxx-curimzn medicine for pain and fever, medicines for cough or congestion, and medicines to relieve diarrhea. Antiviral medicines. These drugs are available only for certain types of viruses. They may help reduce flu symptoms if taken early. There are also many antiviral medicines for hepatitis and HIV/AIDS. Some viral illnesses can be prevented with vaccinations. A common example is the flu shot. Follow these instructions at home: Medicines Take clnt-hyg-qamxdml and prescription medicines only as told by your health care provider. If you were prescribed an antiviral medicine, take it as told by your health care provider. Do not stop taking the medicine even if you start to feel better. Be aware of when antibiotics are needed and when they are not needed. Antibiotics do not treat viruses. If your health care provider thinks that you may have a bacterial infection as well as a viral infection, you may get an antibiotic. ?Do not ask for an antibiotic prescription if you have been diagnosed with a viral illness. That will not make your illness go away faster. ?Frequently taking antibiotics when they are not needed can lead to antibiotic resistance. When this develops, the medicine no longer works against the bacteria that it normally fights. General instructions Drink enough fluids to keep your urine clear or pale yellow. Rest as much as possible. Return to your normal activities as told by your health care provider. Ask your health care provider what activities are safe for you. Keep all follow-up visits as told by your health care provider. This is important. How is this prevented? Take these actions to reduce your risk of viral infection: Eat a healthy diet and get enough rest. Wash your hands often with soap and water. This is especially important when you are in public places. If soap and water are not available, use hand graduate teaching associate. Avoid close contact with friends and family who have a viral illness. If you travel to areas where viral gastrointestinal infection is common, avoid drinking water or eating raw food. Keep your immunizations up to date. Get a flu shot every year as told by your health care provider. Do not share toothbrushes, nail clippers, razors, or needles with other people. Always practice safe sex. Contact a health care provider if: You have symptoms of a viral illness that do not go away. Your symptoms come back after going away. Your symptoms get worse. Get help right away if: You have trouble breathing. You have a severe headache or a stiff neck. You have severe vomiting or abdominal pain. This information is not intended to replace advice given to you by your health care provider. Make sure you discuss any questions you have with your health care provider. Document Released: 10/20/2016 Document Revised: 05/24/2018 Document Reviewed: 10/20/2016 [employer] Patient Education [employer] Follow Up Care 01/09/2022 18:00:24 With:Caden MITCHELL Address: [address] [place] [id number] Business (1) When:01/12/2022 19:35:17 [facility] Hospital Discharge instructions 10-10-2021 Note Date & Type Note Facility 10-10-2021 Hospital Discharg e instructions Patient Education 10/10/2021 15:02:44 Community-Acquired Pneumonia, Adult, Sqrh-yy-Hzjn Community-Acquired Pneumonia, Adult Pneumonia is an infection of the lungs. It causes swelling in the airways of the lungs. Mucus and fluid may also build up inside the airways. One type of pneumonia can happen while a person is in a hospital. A different type can happen when a person is not in a hospital (community-acquired pneumonia). What are the causes? This condition is caused by germs (viruses, bacteria, or fungi). Some types of germs can be passed from one person to another. This can happen when you breathe in droplets from the cough or sneeze of an infected person. What increases the risk? You are more likely to develop this condition if you: Have a long-term (chronic) disease, such as: ?Chronic obstructive pulmonary disease (COPD). ?Asthma. ?Cystic fibrosis. ?Congestive heart failure. ?Diabetes. ?Kidney disease. Have HIV. Have sickle cell disease. Have had your spleen removed. Do not take good care of your teeth and mouth (poor dental hygiene). Have a medical condition that increases the risk of breathing in droplets from your own mouth and nose. Have a weakened body defense system (immune system). Are a smoker. Travel to areas where the germs that cause this illness are common. Are around certain animals or the places they live. What are the signs or symptoms? A dry cough. A wet (productive) cough. Fever. Sweating. Chest pain. This often happens when breathing deeply or coughing. Fast breathing or trouble breathing. Shortness of breath. Shaking chills. Feeling tired (fatigue). Muscle aches. How is this treated? Treatment for this condition depends on many things. Most adults can be treated at home. In some cases, treatment must happen in a hospital. Treatment may include: Medicines given by mouth or through an IV tube. Being given extra oxygen. Respiratory therapy. In rare cases, treatment for very bad pneumonia may include: Using a machine to help you breathe. Having a procedure to remove fluid from around your lungs. Follow these instructions at home: Medicines Take ujsc-gwy-iysgbru and prescription medicines only as told by your doctor. ?Only take cough medicine if you are losing sleep. If you were prescribed an antibiotic medicine, take it as told by your doctor. Do not stop taking the antibiotic even if you start to feel better. General instructions Sleep with your head and neck raised (elevated). You can do this by sleeping in a recliner or by putting a few pillows under your head. Rest as needed. Get at least 8 hours of sleep each night. Drink enough water to keep your pee (urine) pale yellow. Eat a healthy diet that includes plenty of vegetables, fruits, whole grains, low-fat dairy products, and lean protein. Do not use any products that contain nicotine or tobacco. These include cigarettes, e-cigarettes, and chewing tobacco. If you need help quitting, ask your doctor. Keep all follow-up visits as told by your doctor. This is important. How is this prevented? A shot (vaccine) can help prevent pneumonia. Shots are often suggested for: People older than 65 years of age. People older than 19 years of age who: ?Are having cancer treatment. ?Have long-term (chronic) lung disease. ?Have problems with their body's defense system. You may also prevent pneumonia if you take these actions: Get the flu (influenza) shot every year. Go to the dentist as often as told. Wash your hands often. If you cannot use soap and water, use hand graduate teaching associate. Contact a doctor if: You have a fever. You lose sleep because your cough medicine does not help. Get help right away if: You are short of breath and it gets worse. You have more chest pain. Your sickness gets worse. This is very serious if: ?You are an older adult. ?Your body's defense system is weak. You cough up blood. Summary Pneumonia is an infection of the lungs. Most adults can be treated at home. Some will need treatment in a hospital. Drink enough water to keep your pee pale yellow. Get at least 8 hours of sleep each night. This information is not intended to replace advice given to you by your health care provider. Make sure you discuss any questions you have with your health care provider. Document Released: 11/27/2008 Document Revised: 10/01/2019 Document Reviewed: 02/06/2019 [employer] Patient Education 2020 [employer]. Follow Up Care 10/10/2021 13:10:54 With:Sharath Lugo DO Address: [address] [place], [place] [address] [address] [place] [address]- When:10/13/2021 [facility] Evaluation + Plan note 10-10-2021 Note Date & Type Note Facility 10-10-2021 Evaluation + Plan note Extrac kelechi from: Title:ED Note Author:Saskia Babcock PA-C Date :10/10/21 1. Atypical pneumonia (J18.9 : Pneumonia, unspecified organism) Ordered: albuterol, 2.5 mg = 3 mL, Inhalation, q6hr, PRN for wheezing, X 5 day(s), # 30 EA, Refills(s) 0, Pharmacy: [id number], 175, cm, 10/10/21 13:17:00 EDT, Height/Length Dosing, 93, kg, 10/10/21 13:17:00 EDT, Weight Dosing doxycycline, 100 mg = 1 cap(s), Oral, q12hr, X 10 day(s), # 20 cap(s), Refills(s) 0, Pharmacy: [id number], 175, cm, 10/10/21 13:17:00 EDT, Height/Length Dosing, 93, kg, 10/10/21 13:17:00 EDT, Weight Dosing [facility] Prescription, nebulizer, See Instructions, 1 EA, 0, nebulizer, Supply predniSONE, 60 mg = 3 tab(s), Oral, Daily, X 5 day(s), # 15 tab(s), Refills(s) 0, Pharmacy: [id number], 175, cm, 10/10/21 13:17:00 EDT, Height/Length Dosing, 93, kg, 10/10/21 13:17:00 EDT, Weight Dosing 2. Emphysema lung (J43.9: Emphysema, unspecified) Ordered: albuterol, 2.5 mg = 3 mL, Inhalation, q6hr, PRN for wheezing, X 5 day(s), # 30 EA, Refills(s) 0, Pharmacy: [id number], 175, cm, 10/10/21 13:17:00 EDT, Height/Length Dosing, 93, kg, 10/10/21 13:17:00 EDT, Weight Dosing doxycycline, 100 mg = 1 cap(s), Oral, q12hr, X 10 day(s), # 20 cap(s), Refills(s) 0, Pharmacy: [id number], 175, cm, 10/10/21 13:17:00 EDT, Height/Length Dosing, 93, kg, 10/10/21 13:17:00 EDT, Weight Dosing [facility] Prescription, nebulizer, See Instructions, 1 EA, 0, nebulizer, Supply predniSONE, 60 mg = 3 tab(s), Oral, Daily, X 5 day(s), # 15 tab(s), Refills(s) 0, Pharmacy: [id number], 175, cm, 10/10/21 13:17:00 EDT, Height/Length Dosing, 93, kg, 10/10/21 13:17:00 EDT, Weight Dosing Orders: albuterol-ipratropium, 3 mL, Soln-Inh, Inhalation, Once, Stop date 10/10/21 13:24:00 EDT, STAT, Start date 10/10/21 13:24:00 EDT albuterol-ipratropium, 6 mL, Soln-Inh, Inhalation, Once, Stop date 10/10/21 15:01:00 EDT, STAT, Start date 10/10/21 15:01:00 EDT dexamethasone, 10 mg = 2.5 mL, Injection, Oral, Once, Stop date 10/10/21 13:24:00 EDT, STAT, Start date 10/10/21 13:24:00 EDT, 10/10/21 13:24:00 EDT Automated Diff Basic Metabolic Panel CBC w/ Auto Diff CTA Chest D-Dimer eGFR Influenza A&B Ag Magnesium Level PT & PTT Rapid COVID Antigen ([facility] [place]) Troponin 0 Hr. [facility] Hospital course Narrative Note Date & Type Note Facility Hospital course Narrative No data available for this section [facility] Progress note Note Date & Type Note Facility Progress note No data available for this section [facility] Summary Purpose Family History No Family History Records Found Advance Directives No Advanced Directives Records FoundNo Advanced Directives Records Found Additional Source Comments Care Team (unrecognized sect ion and content) Personnel Name: Caden MITCHELL MD Address: [address] [place] [address] Personnel Name: Sharath Lugo DO Address: Address: [address] [place] [address] Personnel Name: Sharath Lugo DO Address: Address: [address] [place] [address] (unrecognized sect ion and content) No Status Records FoundNo Status Records Found INFORMATION SOURCE (unrecogn ized section and content) DATE CREATED AUTHOR 11/04/2023 [facility] DATE CREATED AUTHOR 'S ORGANIZ ATION 11/28/2023 [facility] FOR RECORDS PERTAINING TO PATIENTS WHO ARE OR HAVE BEEN ENROLLED IN A CHEMICAL DEPENDENCY/SUBSTANCEABUSE PROGRAM, SOME INFORMATION MAY BE OMITTED. This clinical summary was aggregated from multiple sources. Caution should be exercised in using it in the provision of clinical care. This summary normalizes information from multiple sources, and as a consequence, information in this document may materially change the coding, format and clinical context of patient data. In addition, data may be omitted in some cases. CLINICAL DECISIONS SHOULD BE BASED ON THE PRIMARY CLINICAL RECORDS. [employer] [facility]. provides no warranty or guarantee of the accuracy or completeness of information in this document.
== END 2024-02-21 14:29 | disposition home or self-care (01) ==
PROVIDERS: Emergency Provider Emergency Medicine
DX: S39.012A Strain of muscle, fascia and tendon of lower back, initial encounter (principal); W01.0XXA Fall on same level from slipping, tripping and stumbling without subsequent striking against object, initial encounter; X50.1XXA Overexertion from prolonged static or awkward postures, initial encounter
CPT/HCPCS: 72100; 99283

== ENCOUNTER 2024-03-04 22:45 | Emergency (ER) | payer BC, SELFPAY ==
--- OUTSIDE RECORDS SUMMARY | 2024-03-04 22:50 | XMS_ITS | CCD ---
Author Organization [facility] Inform ion Partnership [facility] Care Team Providers Care Legal Coordinator Name Role Phone Sharath Lugo Primary Care Physician Caden MITCHELL Primary Care Physician Sharath Lugo Primary Care Physician JOSÉ MIGUEL LEES Attending Unavailable Misty LEWIS Attending Unavailable Nii Degroot Attending Unavailable Martín Hawthorne Attending Unavailable Allergies Allergy Classification Reported Allergen(s) Allergy Type Date of Onset Reaction(s) Facility (5 sources) Penicillins; Translations: [penicillins] Drug allergy Unknown (qualifier value) [facility] Medications Current Medications Medication Drug Class(es) Dates Sig (Normalized) Sig (Original) 200 actuat albuterol 0.09 mg/actuat dry powder inhaler (5 sources) beta2-Adrenergic Agonist Start: 01-09-2022 End: 02-10-2022 take 1 dose by inhalation every four hours albuterol 90 mcg/inh inhalation powder 2 puff(s), Inhalation, q4hr for wheezing or SOB, 1 EA, Refill(s) 0, [facility], 175, cm, 01/09/22 18:04:00 EDT, Height/Length [...] day(s), # 30 EA, Refills(s) 0, Pharmacy: [facility], 175, cm, 10/10/21 13:17:00 EDT, Height/Length [...] day(s), # 21 cap(s), Refills(s) 0, Pharmacy: [facility], 175.3, cm, 05/01/23 5:46:00 EST, Height/Length [...] day(s), # 20 cap(s), Refills(s) 0, Pharmacy: [facility], 175, cm, 10/10/21 13:17:00 EDT, Height/Length Dosing, 93, kg, 10/10/21 13:17:00 EDT, Weight Dosing Start Date: 10/10/21 Stop Date: 10/20/21 Status: Ordered predniSONE 20 mg oral tablet (1 source) Start: 10-10-2021 End: 10-15-2021 take 3 tablets by mouth once daily predniSONE 20 mg Tab 60 mg = 3 tab(s), Oral, Daily, X 5 day(s), # 15 tab(s), Refills(s) 0, Pharmacy: [facility], 175, cm, 10/10/21 13:17:00 EDT, Height/Length [...] day, # 14 tab(s), Refills(s) 0, Pharmacy: [facility], 175.3, cm, 10/23/23 15:12:00 EDT, Height/Length [...] Interpretation Reference Range Facility [facility]enton 10-29-2023 Consent [id number] #1.00TIFF Normal [facility] Workers' Comp Officeon 10-28 Workers' Comp Office [id number]#1.00TIFF Normal [facility] Workers' Comp Office [id number] 312#1.00TIFF Normal [facility] Workers' Comp Office Patient: NII PIERSON Age: [...] History of Present Illness DOI: 10/23/23 Employer: 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 [...] day, # 14 tab(s), Refills(s) 0, Pharmacy: [facility], 175.3, cm, 10/23/23 15:12:00 EDT, Height/Length Dosing, 84.8, kg, 10/23/23 15:12:00 EDT, Weight Dosing nebulizer: nebulizer, See Instructions, 1 EA, 0, nebulizer, Supply, Home Medications (3) Active naproxen 500 mg Tab 500 mg = 1 tab(s), Oral, BID nebulizer See Instructions Proventil HFA 90 mcg/inh Aerosol 2 puff(s), Inhalation, QID Problem list: Active Problems (1) Smoker Histories Past Medical History: Resolved Asthma ([id number]): Resolved. Procedure history: tubes in bilateral ears as a child. Physical Examination Vital Signs (last 24 hrs) Last Charted SBP 126 mmHg (OCTOBER 28 10:56) DBP 70 mmHg (OCTOBER 28 10:56) General: Alert and oriented, No acute distress. Musculoskeletal No deformity of left wrist. No edema is present. No tenderness to palpation. FROM of wrist and fingers. Good strength.. Integumentary: Warm, Dry, [place]. Neurologic: Alert, Oriented, Normal sensory, Normal motor function. Psychiatric: Cooperative, Appropriate mood & affect. Impression and Plan Diagnosis Unspecified sprain of left wrist, initial encounter ([id number] S63.502A, Working, Medical). Course: Improving. Orders Total [...] Work Restrictions: RTW full duty 9 F/U [facility] Consent for Treatmenton 09-25 Consent for Treatment [id number] BD#1.00TIFF [facility] Discharge Instructionson Discharge Instructions [id number] 457#1.00TIFF [facility] ED Clinical Summaryon 2023 ED Clinical Summary [place] [id number] ED Clinical Summary Person Information Name: NII PIERSON Geni/[facility] Age: 42 Years : 1980 Sex: Male Language: Kinyarwanda PCP: Sharath Lugo DO Marital Status: Single Phone: [phone] Visit Id: Visit Reason: Wrist pain-swelling; LEFT [...] 10/23/2023 16:21:43 10/23/2023 16:21:43 10/23/2023 16:21:43 ADDRESS: [address] [place] [phone] PHYS DOC NOTES: MEDICAL INFORMATION: Prescriptions Given: New Medications [facility], [address] [place], [place] [id number], [phone] naproxen (naproxen 500 mg Tab) 1 Tablets [...] Follow up: With: Address: When: Occupational Health: [facility] [phone] In 3 days 10/26/2023 DIAGNOSIS: Sprain of left wrist Normal [facility] ED Note-Physicianon 10-23-19 ED Note-Physician Basic Information [...] day, # 14 tab(s), Refills(s) 0, Pharmacy: [facility], 175.3, cm, 10/23/23 15:12:00 EDT, Height/Length Dosing, 84.8, kg, 10/23/23 15:12:00 EDT, Weight Dosing Splint Application Wrist XR Forearm 2 Views Left XR Wrist 3+ Views Left Disposition Plan Discharge Prescription List Prescriptions naproxen 500 mg Tab, 500 mg= 1 tab(s), Oral, BID Follow-up With When Contact Information Occupational Health: [facility] [phone] In 3 days 10/26/2023 EDT Additional Instructions: [...] abnormality Read By: Martín Hawthorne DO Normal [facility] Comment on above: Result Comment: Elec tronically Signed By: Martín Hawthorne DO\.br\Date and Time Signed: 10/23/23 15:56 EDT ED Patient Education Noteon 10-23-2023 ED Patient Education Note Normal [facility] ED Patient Summaryon 024 ED Patient Summary [place] [id number] Patient Discharge Instructions Person Information Name: NII PIERSON Age: 42 Years Arrival Date: 10/23/2023 15:04:55 Discharge Diagnosis: Sprain of left wrist Primary Care Physician: Sharath Lugo DO Provider Information Primary Provider: Martín Hawthorne DO [employer] Sales Manager:None The exam and treatment you received in the Emergency Department were for an urgent problem and are not intended as complete care. It is important that you follow up with a doctor, nurse practitioner, or physician?s wellness assistant for ongoing care. If your symptoms [...] Follow-up Instructions: With: Address: When: Occupational Health: [facility] [phone] In 3 days 10/26/2023 In the event that this physician does not participate in your insurance network, please consult with your insurance company to find a nearby participating provider. Patient Education Materials: A MESSAGE TO ALL PATIENTS REGARDING OPIOIDS PRESCRIPTION OPIOIDS: WHAT YOU NEED TO KNOW Prescription opioids can be used to help relieve asantpfq-zq-hravhb pain and are often prescribed following a [...] be struggling with addiction, tell your health laboratory animal caretaker and ask for guidance or call [facility]?S National Helpline at 7-165-624-PBVY. e Source: US Department of Health and Human Services/Center for Disease Control & Prevention Patrick Cruz (more content not included)... Normal [facility] Workers Comp Formson 024 Workers Comp Forms [id number] 900#1.00TIFF [facility] XR Forearm 2 Views Lefton XR Forearm 2 Views Left Exam Date/Time: 10/23/2023 15:50 EDT Reason for Exam: Pain, Traumatic Report PLEASE SEE XR Wrist 3+ Views Left REPORT DATED: 10/23/2023. Ordering Provider: Martín Hawthorne FINAL REPORT Dictated: 10/23/2023 4:46 pm Richard Lee MD Signed (Electronic Signature): 10/23/2023 4:46 pm Signed by: Richard Lee MD Transcribed by: JUAN MANUEL Technologist: SULY Technical Comments Radiation Dose: Ka,r in mGy = na DAP = na Normal [facility] XR Wrist 3+ Views Lefton XR Wrist [...] Lee MD Transcribed by: JUAN MANUEL Technologist: SUYL Technical Comments Radiation Dose: Ka,r in mGy = na DAP = na Normal [facility] Consent for Treatmenton Consent for Treatment [id number] 0C#1.00TIFF Normal [facility] Discharge Instructionson Discharge Instructions [id number] 59#1.00TIFF Normal [facility] ED Clinical Summaryon 2022 ED Clinical Summary [address] [address] ED Clinical Summary Person Information Name: NII PIERSON [place] Age: 42 Years : 1980 Sex: Male Language: Kinyarwanda PCP: Sharath Lugo DO Marital Status: Single [...] 05:57:02 ADDRESS: [address] [facility] [phone] PHYS DOC NOTES: MEDICAL INFORMATION: Prescriptions Given: New Medications [facility], [address] [place] [id number], [phone] clindamycin (clindamycin 300 mg oral cap) 1 Capsules By Mouth every 8 hours for 7 Days. Refills: 0. Medications to Continue with No Changes Other Medications albuterol (Proventil HFA 90 mcg/inh Aerosol) 2 Puffs Inhalation 4 times a day. Refills: 0. Misc Prescription (nebulizer) nebulizer. Refills: 0. PATIENT EDUCATION INFORMATION: Instructions: Dental Pain; Dental Abscess Follow up: With: Address: When: [facility] [address] [place] [address] Business (1) In 3 days 05/04/2023 Comments: [...] or worsening symptoms. DIAGNOSIS: Dental abscess Normal [facility] ED Note-Physicianon 05-01-20 ED Note-Physician Basic Information [...] day(s), # 21 cap(s), Refills(s) 0, Pharmacy: [facility], 175.3, cm, 05/01/23 5:46:00 EST, Height/Length Dosing, 93.2, kg, 05/01/23 5:46:00 EST, Weight Dosing Medications Administered Given clindamycin 150 mg Cap, 300 mg, Oral Disposition Plan Patient Discharge Condition Stable Discharge Disposition Home Discharge Prescription List Prescriptions clindamycin 300 mg oral cap, 300 mg= 1 cap(s), Oral, q8hr Follow-up With When Contact [facility] In 3 days 05/04/2023 [place] [address] [facility] (1) Additional Instructions: Call the office of [...] 30 d (more content not included)... Normal [facility] Comment on above: Result Comment: Elec troryderally [...] after getting dental care. Medicines ? Take tkog-ydc-laayhgi and prescription medicines only as told by [...] may be mild or severe. ? Take pusi-gpm-gmxxyrg and prescription medicines only as told by [...] provider. Document Revised: 03/16/2021 Document Reviewed: 03/16/2021 Kony Patient Education ? 2022 Telera. Dental Abscess A dental abscess is an [...] tooth de (more content not included)... Normal [facility] ED Patient Summaryon 023 ED Patient Summary [address] [address] Patient Discharge Instructions Person Information Name: NII PIERSON Age: 42 Years Arrival Date: 05/01/2023 05:37:34 Discharge Diagnosis: Dental abscess Primary Care Physician: Sharath Lugo DO Provider Information Primary Provider: Nii Degroot DO. Advanced [employer] Sales Manager:None The exam and treatment you received in the Emergency Department were for an urgent problem and are not intended as complete care. It is important that you follow up with a doctor, nurse practitioner, or physician?s wellness assistant for ongoing care. If your symptoms become worse or you do not improve as expected and you are unable to reach your usual health care provider, you should return to the Emergency Department. We are available 24 hours a day. NII PIERSON has been given the following list of patient education materials, prescriptions and follow-up instructions: Follow-up Instructions: With: Address: When: [facility] [address] [address] Business (1) In 3 days [...] opioids can be used to help relieve mpjkhybm-gw-apgeat pain and are often prescribed following a [...] of others (more content not included)... Normal [facility] MICRO OTHER TESTSOrdered By: Ambar Crum on 01-09-2022 Rapid COV Int NEG Ctl Pass (01/09/22 6:20 PM) Normal [facility] Man Sero Rapid COV Int POS Ctl Pass (01/09/22 6:20 PM) Normal [facility]3] Sero SARS-CoV+SARS-CoV-2 (COVID-19) Ag IA.rapid Ql (Resp) Not Detected (01/09/22 6:20 PM) Normal Not Detected [facility] Man Sero CHEMISTRYOrdered By: SYSTEM SYSTEM on 10-10-2021 Anion gap [Moles/Vol] 18 mmol/L High 6 - 16 mEq/L [facility] Remisol Calcium [Mass/Vol] 9.5 mg/dL Normal 8.9 - 11. 1 mg/dL [facility] Remisol Chloride [Moles/Vol] 97 mmol/L Low 101 - 1 11 mmol/L [facility] Remisol CO2 [Moles/Vol] 22 mmol/L Normal 21 - 31 mmol/L [facility] Remisol Creatinine [Mass/Vol] 1.1 mg/dL Normal 0.5 - 1.3 mg/dL [facility] Remisol GFR/1.73 sq M.predicted among blacks MDRD (S/P/Bld) [Vol rate/Area] mL/min/1.73 m2 Normal >=59mL/min/1. 73 m2 [facility] Chem S GFR/1.73 sq M.predicted among non-blacks MDRD (S/P/Bld) [Vol rate/Area] mL/min/1.73 m2 Normal >=59mL/min/1. 73 m2 [facility] Chem S Glucose [Mass/Vol] 97 mg/dL Normal [...] FT HemeAutoSS Comment on above: Result Comment: JuanL uis e reviewed by KD. AVITIA OTHER TESTSOrdered By: Rob Terrell on 10-10-2021 Influenzae A Ag Negative (10/10/21 2:05 PM) Normal Negative FT Man Sero Influenzae B Ag Negative (10/10/21 2:05 PM) Normal Negative FT Man [facility]ero Rapid COV Int NEG Ctl Pass (10/10/21 2:05 PM) Normal [facility] Man [facility]ero Rapid COV Int POS Ctl Pass (10/10/21 2:05 PM) Normal [facility] Man Sero SARS-CoV+SARS-CoV-2 (COVID-19) Ag IA.rapid Ql (Resp) Not Detected (10/10/21 2:05 PM) Normal Not Detected [facility] Man Sero Vital Signs Date Time Vital Sign Value Performing Clinician Faci lity 10-23-2023 15:10-0400 Body temperature 98.06 [degF] Martín Hawthorne [facility] 10-23-2023 15:10-0400 Diastolic blood pressure 77 mm[Hg] Martín Hawthorne [facility] 10-23-2023 15:10-0400 Heart rate 88 /min Martín Hawthorne [facility] 10-23-2023 15:10-0400 Respiratory rate 18 /min Martín Hawthorne [facility] 10-23-2023 15:10-0400 SaO2% (BldA) [Mass fraction] 98 % Martín Hawthorne [facility] 10-23-2023 15:10-0400 Systolic blood pressure 111 mm[Hg] Martín Hawthorne [facility] 05-01-2023 05:39-0500 Body temperature 98.06 [degF] Nii Degroot [facility] 05-01-2023 05:39-0500 Diastolic blood pressure 79 mm[Hg] Nii Degroot [facility] 05-01-2023 05:39-0500 Heart rate 82 /min Nii Degroot [facility] 05-01-2023 05:39-0500 Respiratory rate 18 /min Nii Degroot [facility] 05-01-2023 05:39-0500 SaO2% (BldA) [Mass fraction] 98 % Nii Degroot [facility] 05-01-2023 05:39-0500 Systolic blood pressure 136 mm[Hg] Nii Degroot [facility] 01-09-2022 18:41-0400 Body temperature 99.14 [degF] Martín Hawthorne [facility] 01-09-2022 18:41-0400 Heart rate 109 /min Martín Hawthorne [facility] 01-09-2022 18:02-0400 Body temperature 99.5 [degF] Martín Hawthorne [facility] 01-09-2022 18:02-0400 Diastolic blood pressure 63 mm[Hg] Martín Hawthorne [facility] 01-09-2022 18:02-0400 Heart rate 135 /min Martín Hawthorne [facility] 01-09-2022 18:02-0400 Respiratory rate 18 /min Martín Hawthorne [facility] 01-09-2022 18:02-0400 SaO2% (BldA) [Mass fraction] 97 % Martín Hawthorne [facility] 01-09-2022 18:02-0400 Systolic blood pressure 112 mm[Hg] Martín Hawthorne [facility] 10-10-2021 16:20-0400 Diastolic blood pressure 70 mm[Hg] Nii Degroot [facility] 10-10-2021 16:20-0400 Heart rate 105 /min Nii Gael [facility] 10-10-2021 16:20-0400 Mean blood pressure 85 mm[Hg] Nii Gael [facility] 10-10-2021 16:20-0400 Respiratory rate 16 /min Nii Gael [facility] 10-10-2021 16:20-0400 SaO2% (BldA) [Mass fraction] 96 % Nii Gael [facility] 10-10-2021 16:20-0400 Systolic blood pressure 116 mm[Hg] Nii Gael [facility] 10-10-2021 16:15-0400 Hourly Rounding Nii Degroot [facility] 10-10-2021 16:15-0400 Promise to Return Nii Degroot [facility] 10-10-2021 15:49-0400 Diastolic blood pressure 78 mm[Hg] Nii Gael [facility] 10-10-2021 15:49-0400 Heart rate 118 /min Nii Gael [facility] 10-10-2021 15:49-0400 Respiratory rate 20 /min Nii Gael [facility] 10-10-2021 15:49-0400 SaO2% (BldA) [Mass fraction] 92 % Nii Gael [facility] 10-10-2021 15:49-0400 Systolic blood pressure 126 mm[Hg] Nii Agel [facility] 10-10-2021 15:45-0400 Hourly Rounding Nii Gael [facility] 10-10-2021 15:45-0400 Promise to Return Nii Gael [facility] 10-10-2021 15:28-0400 Heart rate 114 /min Nii Gael [facility] 10-10-2021 15:28-0400 SaO2% (BldA) [Mass fraction] 99 % Nii Gael [facility] 10-10-2021 15:27-0400 Heart rate 105 /min Nii Gael [facility] 10-10-2021 14:45-0400 Hourly Rounding Nii Gael [facility] 10-10-2021 14:45-0400 Promise to Return Nii Gael [facility] 10-10-2021 14:04-0400 Respiratory rate 22 /min Nii Gael [facility] 10-10-2021 13:44-0400 Diastolic blood pressure 66 mm[Hg] Nii Gael [facility] 10-10-2021 13:44-0400 Mean blood pressure 79 mm[Hg] Nii Gael [facility] 10-10-2021 13:44-0400 Systolic blood pressure 104 mm[Hg] Nii Gael [facility] 10-10-2021 13:13-0400 Body temperature 99.68 [degF] Nii Gael [facility] 10-10-2021 13:13-0400 Heart rate 118 /min Nii Gael [facility] Encounters Encounter Date Encounter Type Care Provider Facility Start: 11-02-2023 End: 11-02-2023 ambulatory JOSÉ MIGUEL LEES Not Available Start: 10-29-2023 ambulatory Misty LEWIS Facility:[facility] Start: 10-23-2023 End: 10-23-2023 Emergency department patient visit Martín Hawthorne [facility] Start: 05-01-2023 End: 05-01-2023 Emergency department patient visit Nii Degroot [facility] Start: 01-09-2022 End: 01-09-2022 Emergency department patient visit Martín Hawthorne [facility] Start: 10-10-2021 End: 10-10-2021 Emergency department patient visit Nii Degroot [facility] Procedures Date Procedure Procedure Detail Performing Clinician tubes in bilateral ears as a child Nii Gael Payers Date Payer Category Payer Worker's Compensation [phone] 2023 Self-pay 1980 Unknown [id number] 1980 Unknown [id number] 1980 Unknown [id number] Social History Date Type Detail Facility Tobacco [facility] Comment on above: current Sex Assigned At Male [facility] Tobacco smoking status No Smokin g Status Entered [facility] Functional Status Date Assessment Result Facility 10-23-2023 Functional Status N/A [facility] 05-01-2023 Functional Status N/A [facility] 01-09-2022 Functional Status N/A [facility] Hospital Discharge instructions 10-23-2023 Note Date & Type Note Facility 10-23-2023 Hospital Discharg e instructions Follow Up Care 10/23/2023 15:06:36 With:Occupational Health: [facility] [phone] Address:Unknown When:10/26/2023 15:55:30 [facility] Evaluation + Plan note 10-23-2023 Note Date & Type Note Facility 10-23-2023 Evaluation + Plan note Extrac kelechi from: Title:ED Note Author:Martín Hawthorne DO Date:09/25 Sprain of left wrist (S63.50 2A: Unspecified sprain of left wrist, initial encounter) Orders: naproxen, 500 mg = 1 tab(s), Oral, BID, Take one tab by mouth two times a day, # 14 tab(s), Refills(s) 0, Pharmacy: [facility], 175.3, cm, 10/23/23 15:12:00 EDT, Height/Length Dosing, 84.8, kg, 10/23/23 15:12:00 EDT, Weight Dosing Splint Application Wrist XR Forearm 2 Views Left XR Wrist 3+ Views Left [facility] Evaluation + Plan note 05-01-2023 Note [...] day(s), # 21 cap(s), Refills(s) 0, Pharmacy: [facility], 175.3, cm, 05/01/23 5:46:00 EST, Height/Length Dosing, 93.2, kg, 05/01/23 5:46:00 EST, Weight Dosing [facility] Hospital Discharge instructions 05-01-2023 Note Date [...] or after getting dental care. Medicines Take pvvb-vxe-ouikvdk and prescription medicines only as told by [...] pain may be mild or severe. Take mzox-hgc-katiwlp and prescription medicines only as told by [...] provider. Document Revised: 03/16/2021 Document Reviewed: 03/16/2021 Kony Patient Education 2022 Telera. 05/01/2023 05:52:09 Dental Abscess Dental Abscess A [...] Follow these instructions at home: Medicines Take divw-aat-upmdmjf and prescription medicines only as told by [...] provider. Document Revised: 08/18/2021 Document Reviewed: 08/18/2021 [employer] Mobile Patient Education 2022 Telera. Follow Up Care 05/01/2023 05:39:50 With:[facility] Address: [address] [place], [place] [id number] Business (1) When:05/04/2023 05:49:28 Comments:Call the office [...] you develop any new or worsening symptoms. [facility] Hospital Discharge instructions 01-09-2022 Note Date & Type Note Facility 01-09-2022 Hospital Discharg e instructions Patient Education 01/09/2022 19:41:45 Prevent the Spread of COVID-19 if You Are Sick - [facility] Prevent the Spread of COVID-19 if You [...] if you have questions about pets:https://www.cdc.gov/coronav irus/2019-ncov/faq. html#DEVRH60tbbgbqw ?Additional guidance is available for those living in close quarters. (https://www.cdc.gov/coronavirus /2019-ncov/calzc-kspp-mqwjuo/joao jib-ik-jqheq-quarters.html) and shared housing (https://www.cdc.gov/coronavirus /2019-ncov/ yhwcv-qrbr-ojrjlz/shared-housing /index.html). Monitor your symptoms. Symptoms of COVID-19 [...] to your local emergency facility: Notify the tamper operator that you are seeking care for [...] clean your hands with an alcohol-based hand manager trading that contains at least 60% alcohol. Clean your hands often. Wash your hands often with soap and water for at least 20 seconds. This is especially important after blowing your nose, coughing, or sneezing; going to the bathroom; and before eating or preparing food. Use hand manager trading if soap and water are not available. Use an alcohol-based hand manager trading with at least 60% alcohol, covering all [...] and water or put them in the protective signal installer. Clean all high-touch surfaces everyday. Clean and [...] or body fluids on them. Use household assistant site manager and disinfectants. Clean the area or item [...] 10/07/2019 Document Revised: 12/23/2019 Document Reviewed: 12/23/2019 Kony Patient Education 2019 Telera. 01/09/2022 19:41:45 COVID-19: How to Protect Yourself and Others - [facility] COVID-19: How to Protect Yourself and Others Know how it spreads There is currently no vaccine to prevent coronavirus disease 2019 (COVID-19). The best way to prevent illness is to avoid being exposed to this virus. The virus is thought to spread mainly from mnhchy-ni-fazghk. ?Between people who are in close contact [...] are not readily available, use a hand manager trading that contains at least 60% alcohol. Cover [...] at higher risk of getting very sick.www.cdc.gov/coronavirus/201 9-ncov/cckm-ydrqg-xfnjtucaykb/pe ldba-ze-tmhymp-risk.html Cover your mouth and nose with a [...] available, clean your hands with a hand manager trading that contains at least 60% alcohol. Clean and disinfect Clean AND disinfect frequently touched surfaces daily. This includes tables, doorknobs, light switches, countertops, handles, desks, phones, keyboards, toilets, faucets, and sinks. www.cdc.gov/coronavirus/2019-nco v/symvfvg-dxjepzr-ymty/disinfect fst-kvin-nqnp.html If surfaces are dirty, clean them: Use [...] 10/07/2019 Document Revised: 01/01/2020 Document Reviewed: 01/01/2020 [employer] Patient Education 2020 [employer]. 01/09/2022 19:41:45 COVID-19 Frequently Asked Questions COVID-19 [...] the coronavirus come from? In May 2019, [place] told the World Health Organization (WHO) of several cases of lung disease (human respiratory illness). These cases were linked to an open seafood and livestock market in the city of [facility]. The link to the seafood and livestock [...] virus naming World Health Organization (WHO): www.who.int/emergencies/diseases /pcjuc-fruyjgcubqe-7971/technica l-guidance/lpgwpf-qha-zednqlwrpa s-disease-(covid-2019)-and-the-v objw-dlfv-euxqqm-it Who is at risk for complications from [...] relieve his or her symptoms by using uyif-ktd-slhzbwd medicines that treat sneezing, coughing, and runny [...] water are not available, use alcohol-based hand manager trading. Avoid touching your face, mouth, nose, or [...] www.cdc.gov/coronavirus/2019-nco v/travelers/index.html World Health Organization (WHO): www.who.int/emergencies/diseases /febps-hyhkobdxmui-6305/travel-a dvice Know the risks and take action [...] water are not available, use alcohol-based hand manager trading. Cough or sneeze into a tissue, sleeve, [...] in hot, soapy water or use a protective signal installer. Air-dry your dishes. Wash laundry in hot [...] Organization (WHO) Information and news updates: www.who.int/emergencies/diseases /zznab-qdxcqihoyea-2404 Coronavirus health topic: www.who.int/health-topics/gale virus Questions and answers on COVID-19: www.who.int/news-room/q-a-detail /g-m-qpmqjtfprhyrh Global tracker: who.[employer] [place] [employer] (AAP) Information for families: www.healthychildren.org/Kinyarwanda/ health-issues/conditions/chest-l ungs/Pages/9567-Byila-Oigabxekdr s.aspx The coronavirus situation is changing rapidly. [...] 10/07/2019 Document Revised: 10/07/2019 Document Reviewed: 10/07/2019 [employer] Patient Education 2020 [employer] 01/09/2022 19:41:45 COVID-19 COVID-19 COVID-19 is [...] to fight infection (immunocompromised). Live in a long-term or long-term care facility. Have a long-term [...] managed at home with rest, fluids, and bshg-ney-cledles medicines. Treatment for a serious infection usually [...] are safe for you. General instructions Take rkae-kyg-jucmlfb and prescription medicines only as told by [...] are not available, use an alcohol-based hand manager trading. ?Avoid touching your mouth, face, eyes, or [...] water are not available, use alcohol-based hand manager trading. Stay away from other members of your [...] have a weak immunity, live in a long-term, or have chronic disease. There is no [...] 07/17/2019 Document Revised: 11/06/2019 Document Reviewed: 07/17/2019 [employer] Patient Education 2019 [employer]. 01/09/2022 19:41:45 Viral Illness, Adult Viral Illness, [...] Medicines to relieve symptoms. These can include dfuw-vmb-vesqquq medicine for pain and fever, medicines for [...] Follow these instructions at home: Medicines Take cuya-fwv-ayglsyd and prescription medicines only as told by [...] and water are not available, use hand manager trading. Avoid close contact with friends and family [...] 10/20/2016 Document Revised: 05/24/2018 Document Reviewed: 10/20/2016 [employer] Patient Education [employer] Follow Up Care 01/09/2022 18:00:24 With:Caden MITCHELL Address: [address] [place] [id number] Business (1) When:01/12/2022 19:35:17 [facility] Hospital Discharge instructions 10-10-2021 Note Date & Type Note Facility 10-10-2021 Hospital Discharg e instructions Patient Education 10/10/2021 15:02:44 Community-Acquired Pneumonia, Adult, Visl-sj-Wofg Community-Acquired Pneumonia, Adult Pneumonia is an infection [...] Follow these instructions at home: Medicines Take dyzr-qdf-gqxvaha and prescription medicines only as told by [...] cannot use soap and water, use hand manager trading. Contact a doctor if: You have a [...] 11/27/2008 Document Revised: 10/01/2019 Document Reviewed: 02/06/2019 [employer] Patient Education 2020 [employer]. Follow Up Care 10/10/2021 13:10:54 With:Sharath Lugo DO Address: [address] [place], [place] [address] [address] [place] [address]- When:10/13/2021 [facility] Evaluation + Plan note 10-10-2021 Note Date & Type Note Facility 10-10-2021 Evaluation + Plan note Extrac kelechi from: Title:ED Note Author:Saskia Babcock PA-C Date :10/10/21 1. Atypical pneumonia (J18.9 : Pneumonia, unspecified organism) Ordered: albuterol, 2.5 mg = 3 mL, Inhalation, q6hr, PRN for wheezing, X 5 day(s), # 30 EA, Refills(s) 0, Pharmacy: [facility], 175, cm, 10/10/21 13:17:00 EDT, Height/Length Dosing, 93, kg, 10/10/21 13:17:00 EDT, Weight Dosing doxycycline, 100 mg = 1 cap(s), Oral, q12hr, X 10 day(s), # 20 cap(s), Refills(s) 0, Pharmacy: [facility], 175, cm, 10/10/21 13:17:00 EDT, Height/Length Dosing, 93, kg, 10/10/21 13:17:00 EDT, Weight Dosing [facility] Prescription, nebulizer, See Instructions, 1 EA, 0, nebulizer, Supply predniSONE, 60 mg = 3 tab(s), Oral, Daily, X 5 day(s), # 15 tab(s), Refills(s) 0, Pharmacy: [facility], 175, cm, 10/10/21 13:17:00 EDT, Height/Length Dosing, 93, kg, 10/10/21 13:17:00 EDT, Weight Dosing 2. Emphysema lung (J43.9: Emphysema, unspecified) Ordered: albuterol, 2.5 mg = 3 mL, Inhalation, q6hr, PRN for wheezing, X 5 day(s), # 30 EA, Refills(s) 0, Pharmacy: [facility], 175, cm, 10/10/21 13:17:00 EDT, Height/Length Dosing, 93, kg, 10/10/21 13:17:00 EDT, Weight Dosing doxycycline, 100 mg = 1 cap(s), Oral, q12hr, X 10 day(s), # 20 cap(s), Refills(s) 0, Pharmacy: [facility], 175, cm, 10/10/21 13:17:00 EDT, Height/Length Dosing, 93, kg, 10/10/21 13:17:00 EDT, Weight Dosing [facility] Prescription, nebulizer, See Instructions, 1 EA, 0, nebulizer, Supply predniSONE, 60 mg = 3 tab(s), Oral, Daily, X 5 day(s), # 15 tab(s), Refills(s) 0, Pharmacy: [facility], 175, cm, 10/10/21 13:17:00 EDT, Height/Length [...] Level PT & PTT Rapid COVID Antigen ([facility]) Troponin 0 Hr. [facility] Hospital course Narrative Note Date & Type Note Facility Hospital course Narrative No data available for this section [facility] Progress note Note Date & Type Note Facility Progress note No data available for this section [facility] Summary Purpose Family History No Family History Records Found Advance Directives No Advanced Directives Records FoundNo Advanced Directives Records Found Additional Source Comments Care Team (unrecognized sect ion and content) Personnel Name: Caden MITCHELL MD Address: [address] [place] [address] Personnel Name: Sharath Lugo DO Address: Address: [address] [place] [address] Personnel Name: Sharath Lugo DO Address: Address: [address] [place] [address] (unrecognized sect ion and content) No Status Records FoundNo Status Records Found INFORMATION SOURCE (unrecogn ized section and content) DATE CREATED AUTHOR 11/04/2023 [facility] DATE CREATED AUTHOR 'S ORGANIZ ATION 11/28/2023 [facility] FOR RECORDS PERTAINING TO PATIENTS WHO [...] BE BASED ON THE PRIMARY CLINICAL RECORDS. [facility]. provides no warranty or guarantee of the accuracy or completeness of information in this document.
[2024-03-04 22:52] VITALS: BP 129/69; PULSE 92; TEMP 36.9; O2SAT 99; BMI 28.1
--- NOTE | 2024-03-05 01:04 | ED.GENADUL1 ---
HPI HPI - General Adult General Chief complaint: Upper Respiratory Infection Stated complaint: Flu Symptom Time Seen by Provider: 03/05/24 01:03 Source: patient Mode of arrival: walk-in History of Present Illness HPI narrative: patient has been ill since last (02/28/24). Describes body aches and vomiting/diarrhea. Able to keep down water. 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 Now arrives to ER. Denies cough or dyspnea. wants something for nausea and diarrhea. did not want IV fluids or labs but does need work note Related Data Previous Rx's ?Medication ?Instructions ?Recorded ketorolac 10 mg tablet 10 mg PO TID PRN pain #10 tabs 02/21/24 methocarbamol 750 mg tablet 750 mg PO TID PRN pain #12 tabs 02/21/24 Allergies Allergy/AdvReac Type Severity Reaction Status Date / Time Penicillins Allergy Unknown Unknown Verified 03/04/24 22:52 Opioid HPI Opioid Management Most Recent Opioid Data: No Data to Display Review of Systems ROS Status of ROS 10 or more systems reviewed and unremarkable except as noted in history and below [facility] Medical History (Updated 03/05/24 @ 01:12 by Jorge A Saunders MD) Arthritis of spine ?M47.819 - Spondylosis without myelopathy or radiculopathy, site unspecified (ICD-10) Concussion ?S06.0XAA - Concussion with loss of consciousness status unknown, initial encounter (ICD-10) Asthma ?J45.909 - Unspecified asthma, uncomplicated (ICD-10) Social History Little interest or pleasure in doing things: not at all Feeling down, depressed, or hopeless: not at all Exam Constitutional Vital Signs, click to edit/add: Last Vital Signs Temp 98.5 F 03/04/24 22:52 Pulse 70 03/05/24 01:35 Resp 18 03/05/24 01:35 BP 129/69 03/04/24 22:52 Pulse Ox 97 03/05/24 01:35 O2 Del Method Room Air 03/05/24 01:35 Common normals: no apparent distress, average body habitus, oriented x3, no limitations, healthy appearing, alert and well nourished Eye Common normals: EOMs intact bilaterally and conjunctivae normal Respiratory Common normals: normal respiratory effort, no retractions, no use of accessory muscles and clear to auscultation bilaterally Cardio Common normals: regular rate, regular rhythm, S1 normal heart sound and S2 normal heart sound GI Common normals: Normal to inspection, nondistended, normoactive bowel sounds present, soft to palpation and non-tender Extremity Common normals: normal to inspection and full ROM Neuro Common normals: oriented x3, CN's II-XII intact bilaterally, moves all extremities and no focal motor deficits Psych Appearance: grossly normal Course Vital Signs Vital signs: Vital Signs Temperature 98.5 F 03/04/24 22:52 Pulse Rate 92 H 03/04/24 22:52 Respiratory Rate 16 03/04/24 22:52 Blood Pressure 129/69 03/04/24 22:52 Pulse Oximetry 99 03/04/24 22:52 Oxygen Delivery Method Room Air 03/04/24 22:52 Temperature 98.5 F 03/04/24 22:52 Pulse Rate 70 03/05/24 01:35 Respiratory Rate 18 03/05/24 01:35 Blood Pressure 129/69 03/04/24 22:52 Pulse Oximetry 97 03/05/24 01:35 Oxygen Delivery Method Room Air 03/05/24 01:35 Medical Decision Making MDM Narrative Medical decision making narrative: patient arrives with gastroenteritis by history. Requesting work note and something for nausea/diarrhea. Swab for COVID 19 pending. Patient given dose of zofran and discharged home with work note Lab Data Labs: Lab Results 03/05/24 Range/Units 00:19 SARS-CoV-2 Ag (CV2AG) Negative (NEGATIVE) Discharge Plan Discharge Chief Complaint: Upper Respiratory Infection Clinical Impression: Gastroenteritis Patient Disposition: Home, Self-Care Prescriptions / Home Meds: No Action ketorolac 10 mg tablet 10 mg PO TID PRN (Reason: pain) Qty: 10 0RF methocarbamol 750 mg tablet 750 mg PO TID PRN (Reason: pain) Qty: 12 0RF Print Language: Macedonian Instructions: Gastroenteritis (ED) Additional Instructions: patient has been ill since 02/28/24. Work note provided for tonight Referrals: Physician,Non-Staff, MD [Primary Care Provider] - 1 week Discharge Date/Time: 03/05/24 01:36
[2024-03-05] MEDS: ONDANSETRON 4 MG RAPDIS TABLET SL (01:19)
[2024-03-05 01:25] LABS: Internal Control Within Normal Limits; SARS-CoV-2 Ag NEGATIVE (NEGATIVE)
[2024-03-05 01:35] VITALS: PULSE 70; O2SAT 97
== END 2024-03-05 01:36 | disposition home or self-care (01) ==
PROVIDERS: Emergency Provider Internal Medicine
DX: K52.9 Noninfective gastroenteritis and colitis, unspecified (principal)
CPT/HCPCS: 87811; 99283; Q0162